=== PATIENT | male | born 1980 | race African-American/Black ===

== ENCOUNTER 2016-09-09 13:43 | Emergency (ER) | payer MEDICAID ==
[2016-09-09 13:49] VITALS: BP 148/99
--- NOTE | 2016-09-09 14:24 | ER Document Report ---
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 He states the itching has been for 4 days. States he has not had a rash it just itches. TRAVEL OUTSIDE OF THE [place] IN LAST 30 DAYS: No - HPI Patient complains to provider of: Other - Itching to the pubic area and penis with no rash Onset: Other - 4 days Onset/Duration: Intermittent Quality of pain: No pain, Other - Itching no pain. Patient states the itching comes and goes Severity: None Pain Level: Denies Skin Character: Other - Itching to the pubic area and penis no rash small bump to the penis no pain Quality of rash: Itchy Identify cause: No Exacerbated by: Denies Relieved by: Denies Similar symptoms previously: No Recently seen / treated by doctor: No - Related Data Allergies/Adverse Reactions: No Known Allergies Allergy (Verified 09/09/16 13:47) Past Medical History - General Information source: Patient - Social History Smoking Status: Current Every Day Smoker Cigarette use (# per day): Yes - pack Per day Chew tobacco use (# tins/day): No Frequency of alcohol use: None Drug Abuse: None Lives with: Family Family History: Arthritis, COPD, CVA, Hypertension, Malignancy, Thyroid Disfunction. denies: CAD, DM, Hyperlipidemia Patient has suicidal ideation: No Patient has homicidal ideation: No - Past Medical History Cardiac Medical History: Reports: None Pulmonary Medical History: Reports: None EENT Medical History: Reports: None Neurological Medical History: Reports: None Endocrine Medical History: Reports: None Renal/ Medical History: Reports: None Malignancy Medical History: Reports None GI Medical History: Reports: None Musculoskeltal Medical History: Reports Hx Arthritis, Reports Hx Musculoskeletal Trauma - Chronic back pain after a back injury Skin Medical History: Reports None Psychiatric Medical History: Reports: Hx Anxiety Traumatic Medical History: Reports: None Infectious Medical History: Reports: None Surgical Hx: Negative - Immunizations Immunizations up to date: Yes Hx Diphtheria, Pertussis, Tetanus Vaccination: Yes - 2012 Review of Systems - Review of Systems Constitutional: Recent illness EENT: Nose discharge, Sinus discharge, Throat pain Cardiovascular: No symptoms reported Respiratory: Cough Gastrointestinal: No symptoms reported Genitourinary: No symptoms reported Male Genitourinary: No symptoms reported Musculoskeletal: No symptoms reported Skin: No symptoms reported Hematologic/Lymphatic: No symptoms reported Neurological/Psychological: No symptoms reported -: Yes All other systems reviewed and negative Physical Exam - Vital signs Vitals: Temp Pulse Resp BP Pulse Ox 98.4 F 98 17 148/99 H 97 09/09/16 13:47 09/09/16 13:47 09/09/16 13:47 09/09/16 13:47 09/09/16 13:47 Interpretation: Normal - General General appearance: Appears well, Alert - HEENT Head: Normocephalic, Atraumatic Eyes: Normal Pupils: PERRL Ears: Normal External canal: Normal Tympanic membrane: Normal Sinus: Normal Nasal: Purulent discharge, Swelling Mouth/Lips: Normal Mucous membranes: Normal Pharynx: Erythema, Post nasal drainage. No: Exudate, Tonsillar hypertrophy, Potential airway comprom. Neck: Normal - Respiratory Respiratory status: No respiratory distress Chest status: Nontender Breath sounds: Nonproductive cough. No: Rales, Rhonchi, Stridor, Wheezing Chest palpation: Normal - Cardiovascular Rhythm: Regular Heart sounds: Normal auscultation Murmur: No - Abdominal Inspection: Normal Distension: No distension Bowel sounds: Normal Tenderness: Nontender Organomegaly: No organomegaly - Back Back: Normal, Nontender - Extremities General upper extremity: Normal inspection, Nontender, Normal color, Normal ROM , Normal temperature General lower extremity: Normal inspection, Nontender, Normal color, Normal ROM , Normal temperature, Normal weight bearing. No: Cesar's sign - Neurological Neuro grossly intact: Yes Cognition: Normal Orientation: AAOx4 Yanni Coma Scale Eye Opening: Spontaneous [place] Coma Scale Verbal: Oriented Yanni Coma Scale Motor: Obeys Commands Yanni Coma Scale Total: 15 Speech: Normal Motor strength normal: LUE, RUE, LLE, RLE Sensory: Normal - Psychological Associated symptoms: Normal affect, Normal mood - Skin Skin Temperature: Warm Skin Moisture: Dry Skin Color: Normal Course - Vital Signs Vital signs: Temp Pulse Resp BP Pulse Ox 98.4 F 98 17 148/99 H 97 09/09/16 13:47 09/09/16 13:47 09/09/16 13:47 09/09/16 13:47 09/09/16 13:47 Discharge - Discharge Clinical Impression: Itching to the pubic area and penis Disposition: HOME, SELF-CARE Instructions: Family Physicians / Practices Additional Instructions: He was seen today for itching to the pubic area and penis. He states there has been no rash and no pain. Please wash area carefully rinsed well pat dry and apply cornstarch or baby cornstarch to the area. It also buy some [id number] lidocaine for the itching. Return to the ED for any pain redness or swelling. Follow up with your primary doctor for any changes in the bump near penis. FOLLOW-UP CARE: If you have been referred to a physician for follow-up care, call the physician s office for an appointment as you were instructed or within the next two days. If you experience worsening or a significant change in your symptoms, notify the physician immediately or return to the Emergency Department at any time for re-evaluation. Forms: Elevated Blood Pressure, Smoking Cessation Education Referrals: ROBERTA SCHWARZ MD [Primary Care Provider] - Follow up as needed
== END 2016-09-09 14:42 | disposition home or self-care (01) ==
LOC: ER 13:43
DX: L29.8 Other pruritus (principal); R21 Rash and other nonspecific skin eruption; F17.210 Nicotine dependence, cigarettes, uncomplicated
CPT/HCPCS: 99282

== ENCOUNTER 2016-10-02 15:37 | Emergency (ER) | payer MEDICAID ==
[2016-10-02 16:05] VITALS: BP 135/90
--- NOTE | 2016-10-02 16:46 | ER Document Report ---
ED Respiratory Problem - General Chief Complaint: Congestion Stated Complaint: CHEST PAIN Time Seen by Provider: 10/02/16 16:37 Notes: 36 yo male c/o pain to left periscapular area with cough and deep breathing x 2 days. no fever, no chest pain, no shortness of breath. + smoker TRAVEL OUTSIDE OF THE [place] IN LAST 30 DAYS: No - HPI Patient complains to provider of: Cough, Hurts to breath Onset: Yesterday Duration: Intermittent episodes Quality of pain: Achy Sputum amount: None Associated symptoms: denies: Chest pain/discomfort, Difficulty breathing, Heart racing, Short of breath, Wheezing Similar symptoms previously: No - Related Data Allergies/Adverse Reactions: No Known Allergies Allergy (Verified 10/02/16 16:01) Past Medical History - General Information source: Patient - Social History Smoking Status: Current Every Day Smoker Frequency of alcohol use: Occasional Drug Abuse: None Lives with: Family Family History: Arthritis, COPD, CVA, Hypertension, Malignancy, Thyroid Disfunction. denies: CAD, DM, Hyperlipidemia Patient has suicidal ideation: No Patient has homicidal ideation: No - Past Medical History Cardiac Medical History: Denies: Hx Coronary Artery Disease, Hx Heart Attack, Hx Hypertension Pulmonary Medical History: Denies: Hx Asthma, Hx Bronchitis, Hx COPD, Hx Pneumonia Neurological Medical History: Denies: Hx Cerebrovascular Accident, Hx Seizures Renal/ Medical History: Denies: Hx Peritoneal Dialysis Musculoskeltal Medical History: Reports Hx Arthritis, Reports Hx Musculoskeletal Trauma - Chronic back pain after a back injury Psychiatric Medical History: Reports: Hx Anxiety - Immunizations Immunizations up to date: Yes Hx Diphtheria, Pertussis, Tetanus Vaccination: Yes - 2012 Review of Systems - Review of Systems Constitutional: No symptoms reported EENT: No symptoms reported Cardiovascular: No symptoms reported Respiratory: Cough, Hurts to breathe Gastrointestinal: No symptoms reported Genitourinary: No symptoms reported Male Genitourinary: No symptoms reported Musculoskeletal: No symptoms reported Skin: No symptoms reported Hematologic/Lymphatic: No symptoms reported Neurological/Psychological: No symptoms reported Physical Exam - Vital signs Vitals: Temp Pulse Resp BP Pulse Ox 98.7 F 100 22 H 135/90 H 98 10/02/16 16:01 10/02/16 16:01 10/02/16 16:01 10/02/16 16:01 10/02/16 16:01 Interpretation: Normal - General General appearance: Appears well, Alert - HEENT Head: Normocephalic, Atraumatic Eyes: Normal Pupils: PERRL - Respiratory Respiratory status: No respiratory distress Chest status: Nontender Breath sounds: Normal Chest palpation: Normal - Cardiovascular Rhythm: Regular Heart sounds: Normal auscultation Murmur: No - Abdominal Inspection: Normal Distension: No distension Bowel sounds: Normal Tenderness: Nontender Organomegaly: No organomegaly - Back Back: Normal, Nontender - Extremities General upper extremity: Normal inspection, Nontender, Normal color, Normal ROM , Normal temperature General lower extremity: Normal inspection, Nontender, Normal color, Normal ROM , Normal temperature, Normal weight bearing. No: Cesar's sign - Neurological Neuro grossly intact: Yes Cognition: Normal Orientation: AAOx4 [place] Coma Scale Eye Opening: Spontaneous Yanni Coma Scale Verbal: Oriented [place] Coma Scale Motor: Obeys Commands Superior Coma Scale Total: 15 Speech: Normal Motor strength normal: LUE, RUE, LLE, RLE Sensory: Normal - Psychological Associated symptoms: Normal affect, Normal mood - Skin Skin Temperature: Warm Skin Moisture: Dry Skin Color: Normal Course - Re-evaluation Re-evalutation: 10/02/16 16:45 pt's pain is pleuritic in nature. low suspicion for cardiac involvement will get CXR to r/o pheumothorax, metastatic dz, infiltrate 10/02/16 17:47 chest xray negative. results reviewed with patient. will treat discomfort, encourage pulmonary toilet. pt stable for discharge - Vital Signs Vital signs: Temp Pulse Resp BP Pulse Ox 98.7 F 100 22 H 135/90 H 98 10/02/16 16:01 10/02/16 16:01 10/02/16 16:01 10/02/16 16:01 10/02/16 16:01 Discharge - Discharge Clinical Impression: Pleuritic chest pain Condition: Stable Disposition: HOME, SELF-CARE Additional Instructions: Your xray is normal today Take pain med as needed encourage deep breathing Follow up with primary care if pain persists, return to ER for any worsening Prescriptions: Hydrocodone/Acetaminophen [Malo 5-325 Tablet] 1 - 2 tab PO ASDIR PRN #15 tab PRN Reason:
--- NOTE | 2016-10-02 17:56 | RADIOLOGY REPORT (SQ) ---
EXAM DESCRIPTION: CHEST PA/LAT COMPLETED DATE/TIME: 10/02/2016 5:19 pm REASON FOR STUDY: cough, left back pain COMPARISON: 07/31/2015 EXAM PARAMETERS: NUMBER OF VIEWS: two views TECHNIQUE: Digital Frontal and Lateral radiographic views of the chest acquired. RADIATION DOSE: NA LIMITATIONS: none FINDINGS: LUNGS AND PLEURA: No opacities, masses or pneumothorax. No pleural effusion. MEDIASTINUM AND HILAR STRUCTURES: No masses or contour abnormalities. HEART AND VASCULAR STRUCTURES: Heart normal size. No evidence for failure. BONES: No acute findings. HARDWARE: None in the chest. OTHER: No other significant finding. IMPRESSION: NO SIGNIFICANT RADIOGRAPHIC FINDING IN THE CHEST. TECHNICAL DOCUMENTATION: JOB ID: [id number] [employer]- All Rights Reserved
--- NOTE | 2016-10-03 08:42 | EKG REPORT ---
SEVERITY:- ABNORMAL ECG - SINUS RHYTHM LEFT VENTRICULAR HYPERTROPHY : Confirmed by: Cassi Adame 03-Oct-2016 08:41:53
== END 2016-10-02 18:20 | disposition home or self-care (01) ==
LOC: ER 15:37
DX: R07.81 Pleurodynia (principal); R07.1 Chest pain on breathing; R05 Cough; F17.200 Nicotine dependence, unspecified, uncomplicated
CPT/HCPCS: 71020; 93005; 93010; 99283

== ENCOUNTER 2016-10-30 02:49 | Emergency (ER) | payer MEDICAID ==
[2016-10-30] MEDS ORDERED: PREDNISONE 20 MG TABLET PO ONE (05:14)
[2016-10-30] MEDS ORDERED: DIPHENHYDRAMINE HCL 25 MG CAPSULE PO ONE (05:14)
[2016-10-30] MEDS ORDERED: FAMOTIDINE 20 MG TABLET PO ONE (05:14)
--- NOTE | 2016-10-30 05:14 | ER Document Report ---
ED Skin Rash/Insect Bite/Abscs - General Chief Complaint: Skin Problem Stated Complaint: BUMPS & ITCHING ALL OVER BODY Time Seen by Provider: 10/30/16 04:32 Mode of Arrival: Ambulatory Information source: Patient TRAVEL OUTSIDE OF THE [place] IN LAST 30 DAYS: No - HPI Patient complains to provider of: Skin rash/lesion Onset: Other - 2 days Onset/Duration: Persistent Quality of pain: No pain Skin Character: Urticarial Skin Temperature: Warm Quality of rash: Itchy Identify cause: No Exacerbated by: Denies Relieved by: Denies Similar symptoms previously: No Recently seen / treated by doctor: No Notes: Patient is a 36-year-old male who presents to the emergency room complaining of itchy skin rash 2 days, patient is unsure what he may have come in contact with to cause the rash, however he works in [employer], no history of similar rash previously, denies any difficulty breathing or swallowing, no fevers, no sick contacts, no new foods, lotions, soaps, detergents, states he took Benadryl at home with minimal relief of symptoms - Related Data Allergies/Adverse Reactions: No Known Allergies Allergy (Verified 10/30/16 03:16) Past Medical History - General Information source: Patient - Social History Smoking Status: Current Every Day Smoker Family History: Arthritis, COPD, CVA, Hypertension, Malignancy, Thyroid Disfunction. denies: CAD, DM, Hyperlipidemia - Past Medical History Cardiac Medical History: Denies: Hx Coronary Artery Disease, Hx Heart Attack, Hx Hypertension Pulmonary Medical History: Denies: Hx Asthma, Hx Bronchitis, Hx COPD, Hx Pneumonia Neurological Medical History: Denies: Hx Cerebrovascular Accident, Hx Seizures Renal/ Medical History: Denies: Hx Peritoneal Dialysis Musculoskeltal Medical History: Reports Hx Arthritis, Reports Hx Musculoskeletal Trauma - Chronic back pain after a back injury Psychiatric Medical History: Reports: Hx Anxiety - Immunizations Immunizations up to date: Yes Hx Diphtheria, Pertussis, Tetanus Vaccination: Yes - 2012 Review of Systems - Review of Systems Constitutional: No symptoms reported EENT: No symptoms reported Cardiovascular: No symptoms reported Respiratory: No symptoms reported Gastrointestinal: No symptoms reported Genitourinary: No symptoms reported Male Genitourinary: No symptoms reported Musculoskeletal: No symptoms reported Skin: See HPI Hematologic/Lymphatic: No symptoms reported Neurological/Psychological: No symptoms reported -: Yes All other systems reviewed and negative Physical Exam - Vital signs Vitals: Temp Pulse Resp BP Pulse Ox 98.4 F 96 18 135/93 H 100 10/30/16 03:18 10/30/16 03:18 10/30/16 03:18 10/30/16 03:18 10/30/16 03:18 - Notes Notes: - General General appearance: Appears well, Alert In distress: None - HEENT Head: Normocephalic, Atraumatic Eyes: Normal Conjunctiva: Normal Extraocular movements intact: Yes Eyelashes: Normal Pupils: PERRL - Respiratory Respiratory status: No respiratory distress - Cardiovascular Rhythm: Regular - Abdominal Inspection: Normal - Back Back: Normal - Extremities General upper extremity: Normal inspection General lower extremity: Normal inspection - Neurological Neuro grossly intact: Yes Orientation: AAOx4 [place] Coma Scale Eye Opening: Spontaneous [place] Coma Scale Verbal: Oriented [place] Coma Scale Motor: Obeys Commands [place] Coma Scale Total: 15 - Psychological Associated symptoms: Normal affect, Normal mood - Skin Skin Temperature: Warm Skin Moisture: Dry Skin Color: Normal - HEENT Pharynx: Normal. No: Potential airway comprom. Neck: Normal - Skin Location of irregularity: Generalized Character of irregularity: Urticarial Irregularity with: Induration Course - Re-evaluation Re-evalutation: 10/30/16 05:21 Patient with diffuse urticarial rash, unknown trigger, given prescriptions for medications to control symptoms, advised to follow-up accordingly, return if any additional concerns, patient acknowledges understanding and agreement with this plan - Vital Signs Vital signs: Temp Pulse Resp BP Pulse Ox 98.4 F 96 18 135/93 H 100 10/30/16 03:18 10/30/16 03:18 10/30/16 03:18 10/30/16 03:18 10/30/16 03:18 Discharge - Discharge Clinical Impression: Urticarial rash Condition: Stable Disposition: HOME, SELF-CARE Instructions: Acute Urticaria ([facility]) Additional Instructions: Follow up with your primary care provider in one to 2 days. Return to the emergency room immediately if symptoms worsen or any additional concerns. Prescriptions: Diphenhydramine HCl [Benadryl 25 Mg Capsule] 25 mg PO Q6 #30 capsule Famotidine [Pepcid 20 mg Tablet] 20 mg PO BID #12 tablet Prednisone 40 mg PO DAILY #8 tablet Forms: Smoking Cessation Education, Elevated Blood Pressure
[2016-10-30 06:09] VITALS: BP 128/87
== END 2016-10-30 05:30 | disposition home or self-care (01) ==
LOC: ER 02:49
DX: L50.9 Urticaria, unspecified (principal); F17.200 Nicotine dependence, unspecified, uncomplicated
CPT/HCPCS: 99283; J3490; J7512

== ENCOUNTER 2016-10-30 06:08 | Emergency (ER) | payer MEDICAID ==
--- NOTE | 2016-10-30 07:29 | ER Document Report ---
HPI - HPI Patient complains to provider of: Irritation to the dorsal penis Onset: Other - Several days ago Onset/Duration: Gradual Pain Level: 3 Context: 36-year-old male was concerned about an irritation sensation to the dorsal aspect of the distal penis for several days. There is no urethral discharge or pain with urination. No rash. No fever. Did change laundry detergents a week ago. Mild itching. Associated Symptoms: None Exacerbated by: Denies Relieved by: Denies Similar symptoms previously: No Recently seen / treated by doctor: No - ROS ROS below otherwise negative: Yes Systems Reviewed and Negative: Yes All other systems reviewed and negative - REPRODUCTIVE Reproductive: DENIES: : - DERM Skin Color: Normal Past Medical History - General Information source: Patient - Social History Smoking Status: Unknown if Ever Smoked Frequency of alcohol use: None Drug Abuse: None Lives with: Family Family History: Arthritis, COPD, CVA, Hypertension, Malignancy, Thyroid Disfunction Renal/ Medical History: Denies: Hx Peritoneal Dialysis Musculoskeltal Medical History: Reports Hx Arthritis, Reports Hx Musculoskeletal Trauma - Chronic back pain after a back injury Psychiatric Medical History: Reports: Hx Anxiety Past Surgical History: Reports: Other - Circumcised - Immunizations Immunizations up to date: Yes Hx Diphtheria, Pertussis, Tetanus Vaccination: Yes - 2013 Vertical Provider Document - CONSTITUTIONAL Agree With Documented VS: Yes Exam Limitations: No Limitations - INFECTION CONTROL TRAVEL OUTSIDE OF THE [place] IN LAST 30 DAYS: No - HEENT HEENT: Normocephalic - NECK Neck: Supple - RESPIRATORY O2 Sat by Pulse Oximetry: 100 - REPRODUCTIVE Male Genitalia: Normal Inspection - questionable mil erythema to dorsal distal penis, no lesions, no discharge - NEURO Level of Consciousness: Awake, Alert, Appropriate - DERM Integumentary: Warm, Dry Notes: see above Course - Vital Signs Vital signs: Temp Pulse Resp BP Pulse Ox 97.3 F 93 16 129/84 H 100 10/30/16 06:28 10/30/16 06:28 10/30/16 06:28 10/30/16 06:28 10/30/16 06:28 Discharge - Discharge Clinical Impression: Erythema dorsal distal penis Condition: Good Instructions: Contact Dermatitis ([facility]), Steroid Medication Additional Instructions: topical over the counter steroid cream to the red skin std culture is pending, call me in 4 hours for the results [phone] to er any concerns Please complete the patient satisfaction survey if you get one, and return it.. If you do not receive a survey, then you can go to the [facility] website, [email or web address] and place your comments about your very good care. Thank you very much. It was a pleasure being your medical provider today.
[2016-10-30 08:07] VITALS: BP 138/89
[2016-10-30 09:16] LABS: CHLAM PCR NOT DETECTED (NOT DETECT)
== END 2016-10-30 08:07 | disposition home or self-care (01) ==
LOC: ER 06:08
DX: L53.8 Other specified erythematous conditions (principal)
CPT/HCPCS: 87491; 87591; 99283

== ENCOUNTER 2017-01-30 10:35 | Emergency (ER) | payer MEDICARE, MEDICAID ==
[2017-01-30 10:39] VITALS: BP 149/93
[2017-01-30] MEDS ORDERED: IBUPROFEN 800 MG TABLET PO ONE (11:21)
[2017-01-30] MEDS ORDERED: LIDOCAINE 5% (700 MG) TRANSDERMAL ADH..PATCH TP ONE (11:21)
--- NOTE | 2017-01-30 11:24 | ER Document Report ---
HPI - HPI Patient complains to provider of: Low back pain Onset: Other - 6 years off and on Onset/Duration: Persistent Quality of pain: Sharp Pain Level: 4 Context: Patient complains of lower back pain off and on for the past 6 years that recently flared up. Patient denies any radiculopathy or paresthesia. Patient denies any urinary retention or incontinence. Patient denies any fever history of IV drug use. Pain is in typical location of where he has had pain in the past. Associated Symptoms: Other - Low back pain Exacerbated by: Movement Relieved by: Denies Similar symptoms previously: Yes Recently seen / treated by doctor: No - ROS ROS below otherwise negative: Yes Systems Reviewed and Negative: Yes All other systems reviewed and negative - CONSTITUTIONAL Constitutional: DENIES: Fever, Chills - NEURO Neurology: DENIES: Headache, Weakness - URINARY Urinary: DENIES: Dysuria - REPRODUCTIVE Reproductive: DENIES: : - MUSCULOSKELETAL Musculoskeletal: REPORTS: Back Pain. DENIES: Extremity pain - DERM Skin Color: Normal Past Medical History - General Information source: Patient - Social History Smoking Status: Current Every Day Smoker Frequency of alcohol use: None Drug Abuse: None Occupation: [email or web address] Family History: Arthritis, COPD, CVA, Hypertension, Malignancy, Thyroid Disfunction Patient has suicidal ideation: No Patient has homicidal ideation: No - Past Medical History Cardiac Medical History: Denies: Hx Coronary Artery Disease, Hx Heart Attack, Hx Hypertension Pulmonary Medical History: Denies: Hx Asthma, Hx Bronchitis, Hx COPD, Hx Pneumonia Neurological Medical History: Denies: Hx Cerebrovascular Accident, Hx Seizures Renal/ Medical History: Denies: Hx Peritoneal Dialysis Musculoskeltal Medical History: Reports Hx Arthritis, Reports Hx Musculoskeletal Trauma - Chronic back pain after a back injury Psychiatric Medical History: Reports: Hx Anxiety, Hx Depression Surgical Hx: Negative Past Surgical History: Reports: Other - Circumcised - Immunizations Immunizations up to date: Yes Hx Diphtheria, Pertussis, Tetanus Vaccination: Yes - 2012 Vertical Provider Document - CONSTITUTIONAL Agree With Documented VS: Yes Exam Limitations: No Limitations General Appearance: WD/WN, No Apparent Distress Notes: PHYSICAL EXAMINATION: GENERAL: Well-appearing, well-nourished and in no acute distress. HEAD: Atraumatic, normocephalic. EYES: sclera clear, anicteric, conjunctiva are normal. ENT: nares patent, Moist mucous membranes. NECK: Normal range of motion, supple no lymphadenopathy LUNGS: respirations unlabored HEART: Regular rate and rhythm without murmurs EXTREMITIES: Normal range of motion, no pitting or edema. No cyanosis. Gait normal, pt ambulates without difficulty BACK: Thoracolumbar midline tenderness, no deformities or step-offs. No CVA tenderness. NEUROLOGICAL: Cranial nerves grossly intact. Normal speech, normal gait. No saddle anesthesia. PSYCH: Normal mood, normal affect. SKIN: Warm, Dry, normal turgor, no rashes or lesions noted. - INFECTION CONTROL TRAVEL OUTSIDE OF THE [place] IN LAST 30 DAYS: No - RESPIRATORY O2 Sat by Pulse Oximetry: 98 Course - Re-evaluation Re-evalutation: 01/30/17 11:22 The patient has been informed that they may have pre-hypertension or hypertension based on a blood pressure reading in the emergency department. I recommend that patient call the primary care provider listed on their discharge instructions or a physician of their choice by this week to arrange follow-up for further evaluation of possible pre-hypertension or hypertension. The patient presents with low back pain without signs of spinal cord compression, cauda equina syndrome, infection, aneurysm, or other serious etiology. The patient is neurologically intact. Given the extremely risk of these diagnoses further testing and evaluation for these possibilities does not appear to be indicated at this time. Patient has been instructed to return if the symptoms worsen or change in any way. 01/30/17 11:23 Controlled substance database reviewed prior to discharge prescription being written - Vital Signs Vital signs: Temp Pulse Resp BP Pulse Ox 98.7 F 114 H 16 149/93 H 98 01/30/17 10:36 01/30/17 10:36 01/30/17 10:36 01/30/17 10:36 01/30/17 10:36 Discharge - Discharge Clinical Impression: Elevated blood pressure reading Low back pain Qualifiers: Chronicity: unspecified Back pain laterality: midline Sciatica presence: without sciatica Qualified Code(s): M54.5 - Low back pain Condition: Stable Disposition: HOME, SELF-CARE Additional Instructions: Return immediately for any new or worsening symptoms Followup with your primary care provider, call tomorrow to make a followup appointment LOW BACK PAIN: Three out of every four people will have an episode of disabling back pain during their lifetime. Most commonly the pain is due to straining of the muscles and ligaments in the low back. Usual treatment includes: (1) Rest on a firm surface. Avoid lying on your stomach. (2) Ice pack the painful area. After a few days, gentle heat may be used intermittently to relax the area, or ice packs can be continued. (3) Medication may be needed -- muscle relaxers and antiinflammatory medicines are commonly used. (4) As the back improves, exercises are prescribed to strengthen the back and abdominal muscles. Your doctor will advise you on the proper care for your back at each stage in your recovery. You may be better in a few days -- or healing may take several weeks. If new symptoms of a "herniated disc" (radiation of pain, numbness, or tingling down the back of the leg or weakness in the leg) occur, you should be re-examined. Further testing may be necessary. ORAL NARCOTIC MEDICATION: You have been given a prescription for pain control. This medication is a narcotic. It's best taken with food, as nausea can result if taken on an empty stomach. Don't operate machinery or drive within six hours of taking this medication. Do not combine this medicine with alcohol, or with any medication which can cause sedation (such as cold tablets or sleeping pills) unless you get permission from the physician. Narcotics tend to cause constipation. If possible, drink plenty of fluids and eat a diet high in fiber and fruits. Please be aware that prescription narcotics also have the potential for abuse. People become addicted to these medications because of the general sense of wellbeing that they induce. This feeling along with a significant reduction in tension, anxiety, and aggression provides a stimulating seductive quality to these drugs. Once your pain is under control, we encourage you to discard your unused narcotics. ICE PACKS: Apply ice packs frequently against the painful area. Many different schedules are recommended, such as "20 minutes on, 20 minutes off" or "one hour ice, two hours rest." If you need to work, you may need to go longer between ice treatments. You should plan to have the area ice packed AT LEAST one fourth of the time. The ice should be applied over the wrap, tape, or splint, or over a layer of cloth -- not directly against the skin. Some ice bags have a built-in cloth and can be put directly on the skin. WARM PACKS: After approximately two days, apply gentle heat (such as a heating pad or hot water bottle) for about 20 to 30 minutes about every two hours -- at least four times daily. Warmth and elevation will help you make a more rapid recovery , and will ease the pain considerably. Do not use HOT heat, and never apply heat for longer than 30 minutes. The continuous heat can invisibly damage skin and muscles -- even when no burn is seen on the surface. Damaged muscles can make you MORE sore. FOLLOW-UP CARE: If you have been referred to a physician for follow-up care, call the physician s office for an appointment as you were instructed or within the next two days. If you experience worsening or a significant change in your symptoms, notify the physician immediately or return to the Emergency Department at any time for re-evaluation. Prescriptions: Hydrocodone/Acetaminophen [Beasley 5-325 Tablet] 1 each PO Q4 PRN #15 tablet PRN Reason: Naproxen [Naprosyn 250 Nmg Tablet] 1 tab PO BID #14 tablet Forms: Elevated Blood Pressure, Return to Work Referrals: [facility] [Provider Group] - Follow up as needed
== END 2017-01-30 11:32 | disposition home or self-care (01) ==
LOC: ER 10:35
DX: R03.0 Elevated blood-pressure reading, without diagnosis of hypertension (principal); M54.5 Low back pain; F17.200 Nicotine dependence, unspecified, uncomplicated
CPT/HCPCS: 99283; A9270

== ENCOUNTER 2017-02-20 17:16 | Emergency (ER) | payer MEDICARE, MEDICAID ==
[2017-02-20] MEDS ORDERED: KETOROLAC TROMETHAMINE 60 MG/2 ML SDV IM ONE (18:17)
--- NOTE | 2017-02-20 18:23 | ER Document Report ---
ED Neck/Back Problem - General Chief Complaint: Back Pain Stated Complaint: BACK PAIN Time Seen by Provider: 02/20/17 18:06 Mode of Arrival: Ambulatory Information source: Patient Notes: 37-year-old male presents to ED for complaint of back pain on and off for 6 years. He states he pain flared up today. He denies any injury denies any loss of sensation to his legs, any saddle anesthesia, any loss control of bowel bladder, or any loss of control of his legs. TRAVEL OUTSIDE OF THE [place] IN LAST 30 DAYS: No - HPI Patient complains to provider of: Pain, Lower back Onset: Other - Chronic Onset: Chronic Timing: Better Quality of pain: Burning, Sharp Severity: Mild Pain Level: 1 Recent injury: No Associated symptoms: Like prior neck/back pain, Lower back pain. denies: Constipation, Fever, Incontinence, Motor loss, Numbness/tingling, Radiation to leg, Sensory loss, Unable to urinate, Upper back pain Exacerbated by: Nothing Relieved by: Nothing Similar symptoms previously: Yes Recently seen / treated by doctor: No - Related Data Allergies/Adverse Reactions: No Known Allergies Allergy (Verified 02/20/17 17:26) Past Medical History - General Information source: Patient - Social History Smoking Status: Current Every Day Smoker Cigarette use (# per day): Yes - Pack per day Chew tobacco use (# tins/day): No Smoking Education Provided: Yes - Less than 2 minutes Frequency of alcohol use: None Drug Abuse: None Lives with: Spouse/Significant other Family History: Arthritis, COPD, CVA, Hypertension, Malignancy, Thyroid Disfunction Patient has suicidal ideation: No Patient has homicidal ideation: No - Past Medical History Cardiac Medical History: Reports: None Pulmonary Medical History: Reports: None EENT Medical History: Reports: None Neurological Medical History: Reports: None Endocrine Medical History: Reports: None Renal/ Medical History: Reports: None Malignancy Medical History: Reports None GI Medical History: Reports: None Musculoskeltal Medical History: Reports Hx Arthritis, Reports Hx Musculoskeletal Trauma - Chronic back pain after a back injury Skin Medical History: Reports None Psychiatric Medical History: Reports: Hx Anxiety, Hx Depression Traumatic Medical History: Reports: None Infectious Medical History: Reports: None Past Surgical History: Reports: Other - Circumcised - Immunizations Immunizations up to date: Yes Hx Diphtheria, Pertussis, Tetanus Vaccination: Yes - 2012 Review of Systems - Review of Systems Constitutional: No symptoms reported EENT: No symptoms reported Cardiovascular: No symptoms reported Respiratory: No symptoms reported Gastrointestinal: No symptoms reported Genitourinary: No symptoms reported Male Genitourinary: No symptoms reported Musculoskeletal: Back pain, Muscle pain, Muscle stiffness Skin: No symptoms reported Hematologic/Lymphatic: No symptoms reported Neurological/Psychological: No symptoms reported -: Yes All other systems reviewed and negative Physical Exam - Vital signs Vitals: Temp Pulse Resp BP Pulse Ox 98.8 F 90 16 141/102 H 97 02/20/17 17:25 02/20/17 17:25 02/20/17 17:25 02/20/17 17:25 02/20/17 17:25 Interpretation: Normal - General General appearance: Appears well, Alert - HEENT Head: Normocephalic, Atraumatic Eyes: Normal Pupils: PERRL - Respiratory Respiratory status: No respiratory distress Chest status: Nontender Breath sounds: Normal Chest palpation: Normal - Cardiovascular Rhythm: Regular Heart sounds: Normal auscultation Murmur: No - Abdominal Inspection: Normal Distension: No distension Bowel sounds: Normal Tenderness: Nontender Organomegaly: No organomegaly - Back Back: Normal, Tender. No: Deformity/step-off, CVA tenderness, Vertebra tenderness, Scars - Low back, Scoliosis, Wounds - Extremities General upper extremity: Normal inspection, Nontender, Normal color, Normal ROM , Normal temperature General lower extremity: Normal inspection, Nontender, Normal color, Normal ROM , Normal temperature, Normal weight bearing. No: Cesar's sign - Neurological Neuro grossly intact: Yes Cognition: Normal Orientation: AAOx4 Yanni Coma Scale Eye Opening: Spontaneous Yanni Coma Scale Verbal: Oriented Yanni Coma Scale Motor: Obeys Commands Yanni Coma Scale Total: 15 Speech: Normal Motor strength normal: LUE, RUE, LLE, RLE Sensory: Normal - Psychological Associated symptoms: Normal affect, Normal mood - Skin Skin Temperature: Warm Skin Moisture: Dry Skin Color: Normal Course - Re-evaluation Re-evalutation: 02/20/17 20:29 No signs or symptoms of cauda equina. Patient was treated with Toradol and discharged home with prescription for Flexeril. Patient was instructed to please get a primary doctor and follow-up for his elevated blood pressure. And for his back pain. - Vital Signs Vital signs: Temp Pulse Resp BP Pulse Ox 97.7 F 85 19 150/103 H 97 02/20/17 18:25 02/20/17 18:25 02/20/17 18:25 02/20/17 18:25 02/20/17 18:25 Discharge - Discharge Clinical Impression: Chronic low back pain Qualifiers: Back pain laterality: bilateral Sciatica presence: without sciatica Qualified Code(s): M54.5 - Low back pain Condition: Stable Disposition: HOME, SELF-CARE Additional Instructions: Chronic Back Pain Chronic back pain (pain persisting longer than three months) is a common problem. A medical evaluation can look for herniated disc, arthritis, osteoporosis, tumors, and infections. But at least half the time, there's no obvious treatable cause. Anxiety and depression tend to worsen back pain. Ibuprofen or other anti-inflammatory medicine can help. A heating pad, used for 15-20 minutes at a time, can ease pain. For this type of back pain, narcotic medicines should be avoided. Muscle relaxers are rarely helpful unless you're having spasms. Activity is important. Find an aerobic exercise program that your back can tolerate. Too much rest makes back pain worse. Specific back exercises are usually prescribed to strengthen the back and abdominal muscles. Often, a physical therapist can help. Avoid heavy lifting, working while bent over, or standing with both knees straight. Most back pain patients do better with a firm mattress. If new symptoms of a "herniated disc" (radiation of pain, numbness, or tingling down the back of the leg or weakness in the leg) occur, you should be re-examined. Chronic Pain Control Stress, inactivity, and depression make pain more severe regardless of the cause of the pain. Stress and poor physical condition can cause pain such as headaches and backache. Relaxation: Rest in a quiet place with your eyes closed for 20 minutes twice daily. Concentrate on a pleasant image, or simply "feel" your breathing. Clear your mind. Stress management: Deal with your "stressors." Either take action, or eliminate the stressor from your life. Don't let things hang over you. Accept those things you can't change. Nutrition: Eat small, balanced meals -- don't skip, don't overeat. Meals should be high-carbohydrate, low-sugar, low-fat. Exercise: Exercise helps painful conditions and eases stress. Get 30 minutes of moderate exercise, five days a week. Do an activity that does not flare your pain. Precautions: Pain which continues to disrupt daily activities, or which changes in nature, requires a medical evaluation. Pain Clinic referral is available. We do not manage chronic pain in the Emergency Department. We will try to appropriately help you through an acute flare of your chronic painful condition , but for on-going chronic pain that does not improve, you will need to see your private doctor or sign painter. We do not provide repeated medication management of chronic painful conditions. If you wish, we can provide the name of local pain management physicians. Acetaminophen Acetaminophen may be taken for pain relief or fever control. It's much safer than aspirin, offering a wider range of "safe" dosages. It is safe during . Some brand names are Tylenol, Panadol, Datril, Anacin 3, Tempra, and Liquiprin. Acetaminophen can be repeated every four hours. The following are maximum recommended dosages: WEIGHT Dose Drops Elixir Chewable( 80mg) (LBS.) drprs=droppers tsp=teaspoon 6 40 mg .4 ml (1/2) 6-11 80 mg .8 ml (full) 1/2 tsp 1 tab 12-16 120 mg 1 1/2 drprs 3/4 tsp 1 1/2 tabs 17-23 160 mg 2 drprs 1 tsp 2 tabs 24-30 240 mg 3 drprs 1 1/2 tsp 3 tabs 30-35 320 mg 2 tsp 4 tabs 36-41 360 mg 2 1/4 tsp 4 1 /2 tabs 42-47 400 mg 2 1/2 tsp 5 tabs 48-53 480 mg 3 tsp 6 tabs 54-59 520 mg 3 1/4 tsp 6 1 /2 tabs 60-64 560 mg 3 1/2 tsp 7 tabs 65-70 600 mg 3 3/4 tsp 7 1 /2 tabs 71-76 640 mg 4 tsp 8 tabs 77-82 720 mg 4 1/2 tsp 9 tabs 83-88 800 mg 5 tsp 10 tabs >89 pounds or adults 650 mg to 900 mg Acetaminophen can be repeated every four hours. Maximum daily dose not to exceed 4000 mg. These maximum recommended dosages are slightly higher than the dosages written on the product container, but these dosages are very safe and well below the toxic dosage for acetaminophen. Stretching Exercises for the Back The physician has recommended that you begin stretching exercises for your back. These are often used even while the back is painful. However, you should notify the physician if the activities seem to increase your pain. PELVIC TILT: Lie flat on your back with knees bent. Tighten your stomach and buttock muscles so it flattens your lower back against the floor. Hold 10 seconds. Repeat 10 times, twice daily. KNEE RAISE: Lying on the back with knees bent, raise one knee to your chest, then the other. Hold both knees against the chest 10 seconds, then lower one knee at a time. Repeat 10 times, twice daily. PARTIAL TRUNK RAISE: Lie face down, arms at your sides. Keeping your waist on the floor, use your arms raise your chest up. Support yourself on your elbows for 30 seconds. Repeat twice daily, increasing the time to two minutes as you recover. Muscle Relaxers Muscle relaxing medications are usually prescribed for acute muscle spasm or injury to the neck and back. They are often combined with antiinflammatory pain medication for increased relief. You may stop the muscle relaxer when the pain and stiffness have improved. Start the medication again if spasms recur. Muscle relaxers may cause drowsiness, especially with the first dose. Do not operate machinery or drive while under the effects of the medication. Most muscle relaxers last up to 24 hours. Do not combine the medication with alcohol. ICE PACKS: Apply ice packs frequently against the painful area. Many different schedules are recommended, such as "20 minutes on, 20 minutes off" or "one hour ice, two hours rest." If you need to work, you may need to go longer between ice treatments. You should plan to have the area ice packed AT LEAST one fourth of the time. The ice should be applied over the wrap, tape, or splint, or over a layer of cloth -- not directly against the skin. Some ice bags have a built-in cloth and can be put directly on the skin. WARM PACKS: After approximately two days, apply gentle heat (such as a heating pad or hot water bottle) for about 20 to 30 minutes about every two hours -- at least four times daily. Warmth and elevation will help you make a more rapid recovery , and will ease the pain considerably. Do not use HOT heat, and never apply heat for longer than 30 minutes. The continuous heat can invisibly damage skin and muscles -- even when no burn is seen on the surface. Damaged muscles can make you MORE sore. FOLLOW-UP CARE: If you have been referred to a physician for follow-up care, call the physician s office for an appointment as you were instructed or within the next two days. If you experience worsening or a significant change in your symptoms, notify the physician immediately or return to the Emergency Department at any time for re-evaluation. Prescriptions: Cyclobenzaprine HCl [Flexeril 5 mg Tablet] 5 mg PO TID #7 tablet Forms: Elevated Blood Pressure, Smoking Cessation Education, Return to Work Referrals: [facility] [Provider Group] - Follow up as needed
[2017-02-20 18:26] VITALS: BP 150/103
== END 2017-02-20 18:52 | disposition home or self-care (01) ==
LOC: ER 17:16
DX: G89.29 Other chronic pain (principal); M54.5 Low back pain; R03.0 Elevated blood-pressure reading, without diagnosis of hypertension; F17.210 Nicotine dependence, cigarettes, uncomplicated; Z71.6 Tobacco abuse counseling
CPT/HCPCS: 99283; 96372; J1885

== ENCOUNTER 2017-03-29 13:20 | Emergency (ER) | payer OTHER, MEDICARE, MEDICAID ==
[2017-03-29] MEDS ORDERED: TETRACAINE HCL 0.5% OPH SOLN 2 ML OS ONE (14:33)
--- NOTE | 2017-03-29 15:24 | ER Document Report ---
ED Eye Complaint - General Chief Complaint: Eye Problem Stated Complaint: EYE INJURY Time Seen by Provider: 03/29/17 14:26 Mode of Arrival: Ambulatory Information source: Patient Notes: Patient is a 37-year-old black male comes emergency room with 2 complaints the first 1 is he was at work and a piece of glass flew up and hit him in the corner of the eye. He wants that checked out and he originally complained of having a little penis pain. Patient denies any visual complications currently states is just making sure there is nothing in his eye. And has no complaints of discomfort or pain. On his penis patient declines to have that checked up today he said I do not want to have that problem addressed now. 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 Patient was wearing safety glasses and it again is just here to make sure that there is nothing wrong with the eye. TRAVEL OUTSIDE OF THE [place] IN LAST 30 DAYS: No - HPI Patient complains to provider of: Possible foreign body in right eye. Onset: Just prior to arrival Eye location: Right Injury: Yes Occurred at: Work Quality of pain: No pain Severity: None Pain Level: 0 Safety glasses worn: Yes Contact lenses worn: No Eye irrigated by: Yes Associated symptoms: Eyelid swelling - Right lower medial canthus lower portion of the leg - Related Data Allergies/Adverse Reactions: No Known Allergies Allergy (Verified 03/29/17 13:21) Home Medications: Current Home Medications No Home Medications 03/29/17 [History] Past Medical History - General Information source: Patient - Social History Smoking Status: Current Every Day Smoker Cigarette use (# per day): Yes - 1 pack a day Chew tobacco use (# tins/day): No Frequency of alcohol use: None Drug Abuse: None Family History: Arthritis, COPD, CVA, Hypertension, Malignancy, Thyroid Disfunction Patient has suicidal ideation: No Patient has homicidal ideation: No - Past Medical History Cardiac Medical History: Denies: Hx Coronary Artery Disease, Hx Heart Attack, Hx Hypertension Pulmonary Medical History: Denies: Hx Asthma, Hx Bronchitis, Hx COPD, Hx Pneumonia Neurological Medical History: Denies: Hx Cerebrovascular Accident, Hx Seizures Renal/ Medical History: Denies: Hx Peritoneal Dialysis Musculoskeltal Medical History: Reports Hx Arthritis - right shoulder, Reports Hx Musculoskeletal Trauma - Chronic back pain after a back injury Psychiatric Medical History: Reports: Hx Anxiety, Hx Depression Past Surgical History: Reports: Other - Circumcised - Immunizations Immunizations up to date: Yes Hx Diphtheria, Pertussis, Tetanus Vaccination: Yes - 2012 Review of Systems - Review of Systems Constitutional: No symptoms reported EENT: No symptoms reported Cardiovascular: No symptoms reported Respiratory: No symptoms reported Gastrointestinal: No symptoms reported Genitourinary: No symptoms reported Male Genitourinary: No symptoms reported Musculoskeletal: No symptoms reported Skin: No symptoms reported Hematologic/Lymphatic: No symptoms reported Neurological/Psychological: No symptoms reported -: Yes All other systems reviewed and negative Physical Exam - Vital signs Vitals: Temp Pulse Resp BP Pulse Ox 98.4 F 90 14 156/100 H 98 03/29/17 13:26 03/29/17 13:26 03/29/17 13:26 03/29/17 13:26 03/29/17 13:26 Interpretation: Hypertensive - General General appearance: Appears well In distress: None - HEENT Eyes: Other - Mild conjunctival injection right side Conjunctiva: Injected Cornea: Normal, Other - Examination patient's right eye shows that there is normal-appearing pupil and cornea. This was under forcing staining. The eye lids were flipped no foreign bodies were found. There was no fluorescein uptake. There appears to be just a slight amount of swelling to the lower lid at the medial canthus. This most likely resulted from a piece of something hitting his eye. Patient had safety glasses on so he is just caught him on the corner of the medial eyelid. Rest of exam is normal.. No: Corneal abrasion, Corneal ulcer, Dendrite, Embedded foreign body, Flourescein stain uptake, Opacified, Superficial foreign body Extraocular movements intact: Yes Eyelashes: Normal Pupils: PERRL Visual acuity- Right eye: 20/30 Visual acuity- Left eye: 20/20 Visual acuity- Both eyes: 20/15 - Respiratory Respiratory status: No respiratory distress Chest status: Nontender Breath sounds: Normal. No: Decreased air movement, Nonproductive cough, Productive cough, Rales, Rhonchi, Stridor, Wheezing, Other - Cardiovascular Rhythm: Regular Heart sounds: Normal auscultation Murmur: No - Neurological Cognition: Normal Orientation: AAOx4 [place] Coma Scale Eye Opening: Spontaneous [place] Coma Scale Verbal: Oriented [place] Coma Scale Motor: Obeys Commands [place]anni Coma Scale Total: 15 Speech: Normal Course - Vital Signs Vital signs: Temp Pulse Resp BP Pulse Ox 98.4 F 90 14 156/100 H 98 03/29/17 13:26 03/29/17 13:26 03/29/17 13:26 03/29/17 13:26 03/29/17 13:26 - Transfer of Care Notes: 03/29/17 15:31 Again patient had safety glasses on and is only here to make sure that everything is okay. He has no visual complaints. No watery eyes. No foreign bodies were found in the eye. Will let patient go home and return to work tomorrow. Procedures - Eye Procedure Right Acular drops administered: Right Fluorescein applied: Right Slit lamp used: Yes Discharge - Discharge Clinical Impression: Contusion of right eyelid Eye pain Qualifiers: Laterality: right Qualified Code(s): H57.11 - Ocular pain, right eye Condition: Good Disposition: HOME, SELF-CARE Instructions: Contusion ([facility]) Additional Instructions: It appears that you have a small contusion of that right lower lid near the end of the lower right lid. This is called the medial canthus. You do not have a foreign body or piece of glass in her eye. The little bit of swelling that is evident on the lower lid you may use a ice pack 2-3 times a day for a few minutes each time. Should you have any worsening symptoms visual problems return to ER for recheck. I also given her the name of the heat welder plastics is proration clerk today if you have any discomfort or problems he may contact his office and see if he can accommodate you. Forms: Elevated Blood Pressure, Smoking Cessation Education, Return to Work Referrals: KIRILL DAWKINS DO [ACTIVE STAFF] - Follow up as needed
[2017-03-29 15:55] VITALS: BP 135/90
== END 2017-03-29 15:52 | disposition home or self-care (01) ==
LOC: ER 13:20
DX: S00.11XA Contusion of right eyelid and periocular area, initial encounter (principal); H57.11 Ocular pain, right eye; F17.210 Nicotine dependence, cigarettes, uncomplicated; W22.8XXA Striking against or struck by other objects, initial encounter
CPT/HCPCS: 99283

== ENCOUNTER 2017-04-11 12:02 | Emergency (ER) | payer MEDICARE, MEDICAID ==
[2017-04-11 12:07] VITALS: BP 144/99
--- NOTE | 2017-04-11 12:29 | ER Document Report ---
ED General - General Chief Complaint: Lip Swelling Stated Complaint: SWOLLEN LIP Time Seen by Provider: 04/11/17 12:28 Mode of Arrival: Ambulatory Information source: Patient Notes: Patient is a 37-year-old -[place] male who presents with right-sided upper lip swelling that started last yesterday evening. He denies any injury to the area. He endorses associated cold symptoms. He denies any fever, chills , difficulty swallowing, difficulty breathing, cough, shortness of breath or having the sensation that his throat is closing. He has not recently taken any medications. He has not specifically taking any lisinopril. Of note, he is speaking in full sentences without difficulty. Not hypoxic or tachypneic. Otherwise doing well. TRAVEL OUTSIDE OF THE [place] IN LAST 30 DAYS: No - Related Data Allergies/Adverse Reactions: No Known Allergies Allergy (Verified 04/11/17 12:05) Past Medical History - General Information source: Patient - Social History Smoking Status: Current Every Day Smoker Family History: Arthritis, COPD, CVA, Hypertension, Malignancy, Thyroid Disfunction - Past Medical History Cardiac Medical History: Denies: Hx Coronary Artery Disease, Hx Heart Attack, Hx Hypertension Pulmonary Medical History: Denies: Hx Asthma, Hx Bronchitis, Hx COPD, Hx Pneumonia Neurological Medical History: Denies: Hx Cerebrovascular Accident, Hx Seizures Renal/ Medical History: Denies: Hx Peritoneal Dialysis Musculoskeltal Medical History: Reports Hx Arthritis - right shoulder, Reports Hx Musculoskeletal Trauma - Chronic back pain after a back injury Psychiatric Medical History: Reports: Hx Anxiety, Hx Depression Past Surgical History: Reports: Other - Circumcised - Immunizations Immunizations up to date: Yes Hx Diphtheria, Pertussis, Tetanus Vaccination: Yes - 2013 Review of Systems - Review of Systems Constitutional: See HPI EENT: See HPI Cardiovascular: No symptoms reported Respiratory: See HPI Gastrointestinal: No symptoms reported Genitourinary: No symptoms reported Male Genitourinary: No symptoms reported Musculoskeletal: No symptoms reported Skin: No symptoms reported Hematologic/Lymphatic: No symptoms reported Neurological/Psychological: No symptoms reported Physical Exam - Vital signs Vitals: Temp Pulse Resp BP Pulse Ox 99.0 F 100 16 144/99 H 99 04/11/17 12:03 04/11/17 12:03 04/11/17 12:03 04/11/17 12:03 04/11/17 12:03 Interpretation: Normal, Hypertensive - Notes Notes: PHYSICAL EXAM: CONSTITUTIONAL: Alert and oriented, well-appearing and in no acute distress. Speaking in full sentences, not hypoxic or tachypneic. HENT: Normocephalic, atraumatic. Ear canals without erythema or foreign body, TMs pearly medina with good bony landmarks. Nares clear without erythema, septal hematoma or deviation, airway patent. Oropharynx clear without erythema, tonsilar exudate or malocclusion. Trachea midline. Uvula midline. Moist mucous membranes. No angioedema noted. Significant dental caries noted to teeth #6- 7. No evidence of perioral abscess. EYES: Pupils equal round and reactive to light, EOM intact. Sclera anicteric, conjunctiva are normal. No entrapment. NECK: supple without lymphadenopathy. No midline tenderness or paraspinous muscle spasms. No step-offs or deformities. ROM intact. HEART: Regular rate and rhythm without murmurs. LUNGS: CTAB and equal. No wheezes, rales or rhonchi. EXTREMITIES: Normal range of motion, no pitting edema. No cyanosis. Cap Refill < 3 seconds. NEURO: Cranial nerves grossly intact. Normal sensory/motor exams. PSYCH: Normal mood, normal affect. SKIN: Warm and dry. Normal turgor. No rashes or lesions noted. Course - Re-evaluation Re-evalutation: 04/11/17 12:29 Patient seen and examined. No respiratory distress, he is not hypoxic or tachypneic. Vital signs are stable. No angioedema noted. He is speaking in full sentences without difficulty. Do not appreciate any significant lip swelling but patient is tender about the teeth #6-7 with associated severe dental caries to the same. No evidence of perioral abscess. Will treat for dental infection as I feel this is contributing to his lip pain and "swelling". Low suspicion at this time for angioedema, respiratory distress or other emergent condition at this time. At this time, will discharge with return precautions and follow-up recommendations. Verbal discharge instructions given at the bedside and opportunity for questions given. Medication warnings reviewed. Patient is in agreement with this plan and has verbalized understanding of return precautions and the need for primary care follow-up in the next 24-72 hours. - Vital Signs Vital signs: Temp Pulse Resp BP Pulse Ox 99.0 F 100 16 144/99 H 99 04/11/17 12:03 04/11/17 12:03 04/11/17 12:03 04/11/17 12:03 04/11/17 12:03 Discharge - Discharge Clinical Impression: Dental caries Condition: Stable Disposition: HOME, SELF-CARE Additional Instructions: TOOTHACHE: Your pain is due to dental decay. The tooth must be repaired in order for you to feel better. You will, therefore, be referred to a dentist. We do not have dentists on the staff at [facility]. Severe swelling or drainage around a tooth usually means a dental abscess. This also requires evaluation and treatment by the dentist, but antibiotics may be prescribed while awaiting dental treatment. You should be rechecked immediately if you develop major swelling of the face, increasing pain, a lump in the jaw or gums, headache, difficulty swallowing, or fever. FOLLOW-UP CARE: You have been referred for follow-up care to the dentists listed below. Call the dentists office for an appointment as you were instructed or within the next two days. If you experience worsening or a significant change in your symptoms, notify the physician immediately or return to the Emergency Department at any time for re-evaluation. [facility] [address] [place], [place] Monday mornings, by appointment [facility] [address] [place] [address] [facility] [address] [facility] [address] [facility] [address] [email or web address] [address] [place] [address] Monday- 8:00am to 5:00 pm Will see patients from other [facility]. Charges based on income and family size and accepts Medicare, Medicaid, and Insurances Will pull molars [facility] [place] [address] Hours of Operation 8:00 am - 4:30 pm weekdays The following dental offices accept Medicaid: [facility] Dr. Sw[address] Dr. Christina Dr. Bonilla Dr. Yun Ed Yates, Simón, and Yris oral surgery Dr. Tejada ([place]) Dr. Sheets ([place]) [facility] Drs. Solis and Kenneth ([place]) Dr. Bueno ([place]) [facility] Dr. Bennett ([place]) Drs. Gerardo and ([place]) Medicaid Care Line Prescriptions: Amox Tr/Potassium Clavulanate [Augmentin 875-125 Tablet] 1 tab PO BID 10 Days tablet Diphenhydramine HCl [Benadryl] 25 mg PO Q6H PRN #15 capsule PRN Reason: Itching Ibuprofen [Motrin 600 Mg Tablet] 600 mg PO TID #15 tablet Forms: Elevated Blood Pressure
== END 2017-04-11 13:23 | disposition home or self-care (01) ==
LOC: ER 12:02
DX: K02.9 Dental caries, unspecified (principal); F17.200 Nicotine dependence, unspecified, uncomplicated
CPT/HCPCS: 99283

== ENCOUNTER 2017-06-20 14:54 | Emergency (ER) | payer MEDICARE, MEDICAID ==
[2017-06-20 15:02] VITALS: BP 150/93
[2017-06-20] MEDS ORDERED: IBUPROFEN 800 MG TABLET PO ONE (15:25)
--- NOTE | 2017-06-20 15:26 | ER Document Report ---
HPI - HPI Patient complains to provider of: Low back pain, abscess Onset: Other - 2 days Onset/Duration: Persistent Quality of pain: Achy Pain Level: 4 Context: Patient presents complaining of low back pain for the past 2 days. Patient denies any injury. Patient does have a previous history of chronic back pain and that this is in the similar location where he has had pain before. Patient denies any urinary retention or incontinence. Patient denies any fever. Patient additionally reports an abscess to the right inner thigh area. Patient denies any history of MRSA. Associated Symptoms: Other - Low back pain. denies: Fever Exacerbated by: Movement Relieved by: Denies Similar symptoms previously: Yes Recently seen / treated by doctor: No - ROS ROS below otherwise negative: Yes Systems Reviewed and Negative: Yes All other systems reviewed and negative - CONSTITUTIONAL Constitutional: DENIES: Fever, Chills - EENT EENT: DENIES: Sore Throat, Ear Pain, Eye problems - NEURO Neurology: DENIES: Headache, Weakness, Vision blurred, Dizzinesss / Vertigo - CARDIOVASCULAR Cardiovascular: DENIES: Chest pain - RESPIRATORY Respiratory: DENIES: Trouble Breathing, Coughing - GASTROINTESTINAL Gastrointestinal: DENIES: Abdominal Pain, Black / Bloody Stools - URINARY Urinary: DENIES: Dysuria, Urgency, Frequency - REPRODUCTIVE Reproductive: DENIES: : - MUSCULOSKELETAL Musculoskeletal: REPORTS: Back Pain. DENIES: Extremity pain - DERM Notes: Abscess Past Medical History - General Information source: Patient - Social History Smoking Status: Current Every Day Smoker Chew tobacco use (# tins/day): No Smoking Education Provided: Yes Frequency of alcohol use: None Drug Abuse: None Occupation: none Lives with: Family Family History: Arthritis, COPD, CVA, Hypertension, Malignancy, Thyroid Disfunction Patient has suicidal ideation: No Patient has homicidal ideation: No - Past Medical History Cardiac Medical History: Denies: Hx Coronary Artery Disease, Hx Heart Attack, Hx Hypertension Pulmonary Medical History: Denies: Hx Asthma, Hx Bronchitis, Hx COPD, Hx Pneumonia Neurological Medical History: Denies: Hx Cerebrovascular Accident, Hx Seizures Renal/ Medical History: Denies: Hx Peritoneal Dialysis Musculoskeltal Medical History: Reports Hx Arthritis - right shoulder, Reports Hx Musculoskeletal Trauma - Chronic back pain after a back injury Psychiatric Medical History: Reports: Hx Anxiety, Hx Depression Surgical Hx: Negative Past Surgical History: Reports: Other - Circumcised - Immunizations Immunizations up to date: Yes Hx Diphtheria, Pertussis, Tetanus Vaccination: Yes - 2012 Vertical Provider Document - CONSTITUTIONAL Agree With Documented VS: Yes Exam Limitations: No Limitations General Appearance: WD/WN, No Apparent Distress - INFECTION CONTROL TRAVEL OUTSIDE OF THE [place] IN LAST 30 DAYS: No - HEENT HEENT: Atraumatic, Normocephalic - NECK Neck: Normal Inspection - RESPIRATORY Respiratory: Breath Sounds Normal, No Respiratory Distress O2 Sat by Pulse Oximetry: 99 - CARDIOVASCULAR Cardiovascular: Regular Rate, Regular Rhythm - BACK Back: Abnormal Inspection - Left lower lumbar paraspinal tenderness, no midline tenderness, step-off or deformity. negative: CVA Tenderness-Right, CVA Tenderness-Left - MUSCULOSKELETAL/EXTREMETIES Musculoskeletal/Extremeties: LOGAN MARIA - NEURO Level of Consciousness: Awake, Alert, Appropriate Motor/Sensory: No Motor Deficit Notes: No saddle anesthesia, normal gait, no footdrop - DERM Integumentary: Warm, Dry, Abscess - Small 1 cm abscess to right medial thigh, no cellulitis Course - Re-evaluation Re-evalutation: 06/20/17 16:00 The patient presents with low back pain without signs of spinal cord compression , cauda equina syndrome, infection, aneurysm, or other serious etiology. The patient is neurologically intact. Given the extremely risk of these diagnoses further testing and evaluation for these possibilities does not appear to be indicated at this time. Patient has been instructed to return if the symptoms worsen or change in any way. - Vital Signs Vital signs: Temp Pulse Resp BP Pulse Ox 98.8 F 91 16 150/93 H 99 06/20/17 14:59 06/20/17 14:59 06/20/17 14:59 06/20/17 14:59 06/20/17 14:59 Procedures - Incision and Drainage Right Thigh Type: Simple Anesthetic type: 1% Lidocaine Blade size: 11 I&D procedure: Betadine prep applied Incision Method: Incision made by scalpel Amount/type of drainage: small amount of purulent drainage Discharge - Discharge Clinical Impression: Abscess, Encounter for incision and drainage procedure Low back pain Qualifiers: Chronicity: unspecified Back pain laterality: left Sciatica presence: without sciatica Qualified Code(s): M54.5 - Low back pain Condition: Stable Disposition: HOME, SELF-CARE Instructions: Abscess ([facility]), Low Back Pain ([facility]), Trimethoprim-Sulfa ([facility]), Warm Packs ([facility]) Additional Instructions: Return immediately for any new or worsening symptoms Followup with your primary care provider, call tomorrow to make a followup appointment Prescriptions: Methocarbamol [Robaxin 500 Mg Tablet] 500 mg PO QID PRN #20 tablet PRN Reason: Naproxen [Naprosyn 250 Nmg Tablet] 1 tab PO BID #14 tablet Sulfamethoxazole/Trimethoprim [Bactrim Ds Tablet] 1 each PO BID #20 tablet Forms: Smoking Cessation Education Referrals: [facility] [Provider Group] - Follow up as needed
== END 2017-06-20 16:16 | disposition home or self-care (01) ==
LOC: ER 14:54
DX: L02.415 Cutaneous abscess of right lower limb (principal); M54.5 Low back pain; F17.200 Nicotine dependence, unspecified, uncomplicated
CPT/HCPCS: 99283; 10060; A9270

== ENCOUNTER 2017-06-23 16:28 | Emergency (ER) | payer MEDICARE, MEDICAID ==
--- NOTE | 2017-06-23 16:50 | ER Document Report ---
ED Suture/Wound Recheck - General Chief Complaint: Abscess Recheck Stated Complaint: ABSCESS Time Seen by Provider: 06/23/17 16:36 Mode of Arrival: Ambulatory Information source: Patient Notes: 37-year-old male comes ED for continued pain to his abscess to his right upper thigh. He had an I&D on the . There is no redness there is no swelling there is no fluctuation at the site at this time. There is no need for any further treatment to this except for the patient to continue his antibiotics. TRAVEL OUTSIDE OF THE [place] IN LAST 30 DAYS: No - HPI Previous ED treatment: I&D of abscess Antibiotics given previously: Prescription Quality of pain: Sharp Pain Level: 3 Symptoms since procedure: Pain Exacerbated by: Sitting, Movement, Walking Relieved by: Denies - Related Data Allergies/Adverse Reactions: No Known Allergies Allergy (Verified 06/23/17 16:30) Past Medical History - General Information source: Patient - Social History Smoking Status: Never Smoker Chew tobacco use (# tins/day): No Smoking Education Provided: No Frequency of alcohol use: None Drug Abuse: None Lives with: Family Family History: Arthritis, COPD, CVA, Hypertension, Malignancy, Thyroid Disfunction - Past Medical History Cardiac Medical History: Reports: None Pulmonary Medical History: Reports: None EENT Medical History: Reports: None Neurological Medical History: Reports: None Endocrine Medical History: Reports: None Renal/ Medical History: Reports: None Malignancy Medical History: Reports None Musculoskeltal Medical History: Reports Hx Arthritis - right shoulder, Reports Hx Musculoskeletal Trauma - Chronic back pain after a back injury Skin Medical History: Reports Hx Cellulitis Psychiatric Medical History: Reports: Hx Anxiety, Hx Depression Traumatic Medical History: Reports: None Infectious Medical History: Reports: None Past Surgical History: Reports: Other - Circumcised - Immunizations Immunizations up to date: Yes Hx Diphtheria, Pertussis, Tetanus Vaccination: Yes - 2013 Review of Systems - Review of Systems Constitutional: No symptoms reported EENT: No symptoms reported Cardiovascular: No symptoms reported Respiratory: No symptoms reported Gastrointestinal: No symptoms reported Genitourinary: No symptoms reported Male Genitourinary: No symptoms reported Musculoskeletal: No symptoms reported Skin: Other - Pain to abscess right upper leg Hematologic/Lymphatic: No symptoms reported Neurological/Psychological: No symptoms reported -: Yes All other systems reviewed and negative Physical Exam - Vital signs Vitals: Temp Pulse Resp BP Pulse Ox 98.8 F 110 H 18 138/79 H 97 06/23/17 16:32 06/23/17 16:32 06/23/17 16:32 06/23/17 16:32 06/23/17 16:32 Interpretation: Normal - General General appearance: Appears well, Alert - HEENT Head: Normocephalic, Atraumatic Eyes: Normal Pupils: PERRL - Respiratory Respiratory status: No respiratory distress Chest status: Nontender Breath sounds: Normal Chest palpation: Normal - Cardiovascular Rhythm: Regular Heart sounds: Normal auscultation Murmur: No - Abdominal Inspection: Normal Distension: No distension Bowel sounds: Normal Tenderness: Nontender Organomegaly: No organomegaly - Back Back: Normal, Nontender - Extremities General upper extremity: Normal inspection, Nontender, Normal color, Normal ROM , Normal temperature General lower extremity: Normal inspection, Nontender, Normal color, Normal ROM , Normal temperature, Normal weight bearing. No: Cesar's sign - Neurological Neuro grossly intact: Yes Cognition: Normal Orientation: AAOx4 Yanni Coma Scale Eye Opening: Spontaneous Yanni Coma Scale Verbal: Oriented [place] Coma Scale Motor: Obeys Commands Yanni Coma Scale Total: 15 Speech: Normal Motor strength normal: LUE, RUE, LLE, RLE Sensory: Normal - Psychological Associated symptoms: Normal affect, Normal mood - Skin Skin Temperature: Warm Skin Moisture: Dry Skin Color: Normal Skin irregularity: Abscess - Has already been I&D is healing appropriately Location of irregularity: Extremities - Right upper thigh Irregularity with: Swelling, Tenderness Course - Re-evaluation Re-evalutation: 06/23/17 17:43 Patient had Keflex ordered to his regime as well as Epson salt soaks as he states that his area still is hurting. There is no fluctuation no redness no drainage no increase in size. He states it is actually feeling much better than it had been. Patient was instructed to follow-up with his primary doctor for follow-up for this abscess. He is also instructed to return to the ED for any increase in pain or swelling or drainage. He is also instructed to follow- up with the emergency room for any fevers. Patient verbalized understanding. - Vital Signs Vital signs: Temp Pulse Resp BP Pulse Ox 98.8 F 101 H 16 142/90 H 97 06/23/17 16:57 06/23/17 16:57 06/23/17 16:57 06/23/17 16:57 06/23/17 16:57 Discharge - Discharge Clinical Impression: Abscess re-check Condition: Stable Disposition: HOME, SELF-CARE Additional Instructions: ABSCESS: You have an abscess (boil). This a pus-forming infection, usually due to staph. Some boils may be left to drain on their own, but most require lancing. From the time the tender lump first appears, it may be three or four days before the abscess is ready to jonathon. Local heat and rest help at this stage of treatment. An antibiotic may prevent spread of the infection. Once the abscess is opened, packing may be placed into it. This is done so pus is not sealed inside by premature closure of the cavity. The packing will be removed at your follow-up visit or you may be advised to remove it yourself at home. Sometimes this packing must be replaced a few times during healing. The wound will heal with surprisingly little scar. Depending on the size and location of an abscess, healing can take one to four weeks. You may shower and wash the area around the incision site two or three times a day. Antibiotics may be prescribed, but are usually not necessary after an abscess has been drained. If you develop fever, chills, worsening pain, or increasing swelling in the area, call the doctor or return immediately. CEPHALEXIN: The antibiotic you've been prescribed is a member of the cephalosporin class. This type of antibiotic covers a wide variety of infections, including those of the skin, lungs, and urinary tract. It's useful for staph infections. This antibiotic is slightly similar to the penicillin family. In rare cases , a person who is allergic to penicillin will also be allergic to this medication. If you have had a severe allergic reaction to penicillin, and have not taken this antibiotic since that time, notify your doctor. Antibiotics which cover many germs ("broad spectrum" antibiotics) are more likely to cause diarrhea or "yeast" infections. Women prone to vaginal yeast problems may suffer an attack after taking this antibiotic. In infants, oral thrush (white spots "stuck" on the cheek) or yeast diaper rash may result. See your doctor if these problems occur. Call at once if you develop itching, hives , shortness of breath, or lightheadedness. TRIMETHOPRIM-SULFA: You have been given a prescription for trimethoprim-sulfa (TMS, Septra, Bactrim). This is a combination antibiotic of the sulfa class, often used for urinary tract infections, middle ear infections, bronchitis, shigella intestinal infection, and Pneumocystis pneumonia. TMS is usually well-tolerated. Occasional side effects include nausea and decreased appetite. Septra is not recommended for infants less than two months of age. Do not take this medication if you have experienced severe side effects or allergy to sulfa medicine. You should stop this medicine at once and contact your physician if you develop any rash, joint pain, shortness of breath, bruising, or jaundice ( yellow color in the skin), or if you develop any other new or unusual symptoms. Epsom Salt Soaks Soak the wound area in a container of warm epsom salt water. If you can't get the wound area into a bucket or garcia, use a folded towel soaked in the epsom salt solution and apply to the area. Use clean hot tap water (about the temperature of a very warm bath), mixing in about one (1) teaspoon for every pint of water. Two gallon --> 16 teaspoons Epsom Salts One gallon --> 8 teaspoons Epsom Salts Two quarts --> 4 teaspoons Epsom Salts One quart --> 2 teaspoons Epsom Salts Soak the wound for about 20 minutes while gently moving it around in the water. Repeat this four (4) times a day. FOLLOW-UP CARE: Most simple abscesses will not require a follow up visit. If you had packing placed in the abscess, remove it as instructed by the physician. If you have been referred to a physician for follow-up care, call the physicians office for an appointment as you were instructed or within the next two days. If you experience worsening or a significant change in your symptoms, return to the Emergency Department at any time for re-evaluation. Prescriptions: Cephalexin Monohydrate [Keflex 500 mg Capsule] 500 mg PO Q6H 5 Days capsule Forms: Elevated Blood Pressure, Smoking Cessation Education, Return to Work Referrals: [facility] [Provider Group] - Follow up as needed
[2017-06-23 16:59] VITALS: BP 142/90
== END 2017-06-23 17:07 | disposition home or self-care (01) ==
LOC: ER 16:28
DX: L02.415 Cutaneous abscess of right lower limb (principal)
CPT/HCPCS: 99282

== ENCOUNTER 2017-07-03 14:53 | Emergency (ER) | payer MEDICARE, MEDICAID ==
[2017-07-03 15:14] VITALS: BP 141/99
== END 2017-07-03 15:42 | disposition left against medical advice (07) ==
LOC: ER 14:53
DX: Z53.21 Procedure and treatment not carried out due to patient leaving prior to being seen by health care provider (principal); R10.9 Unspecified abdominal pain

== ENCOUNTER 2017-08-23 07:10 | Emergency (ER) | payer MEDICARE, MEDICAID ==
[2017-08-23 08:43] LABS: ABSOLUTE BASOPHILS # (AUTO) 0.1 10^3/uL (0.0-0.2); ABSOLUTE EOSINOPHILS # (AUTO) 0.2 10^3/uL (0.0-0.6); ABSOLUTE LYMPHOCYTES (AUTO) 3.4 10^3/uL (0.5-4.7); ABSOLUTE MONOCYTES (AUTO) 0.7 10^3/uL (0.1-1.4); ABSOLUTE NEUT (AUTO) 3.5 10^3/uL (1.7-8.2); BASOPHILS % (AUTO) 0.8 % (0-2); EOSINOPHILS % (AUTO) 3.1 % (0-6); HEMATOCRIT 41.8 % (37.9-51.0); HEMOGLOBIN 13.5 g/dL (13.5-17.0); LYMPHOCYTES % (AUTO) 42.5 % (13-45); MEAN CORPUSCULAR HEMOGLOBIN 28.5 pg (27.0-33.4); MEAN CORPUSCULAR HGB CONC 32.4 g/dL (32.0-36.0); MEAN CORPUSCULAR VOLUME 88 fl (80-97); MONOCYTES % (AUTO) 9.2 % (3-13); PLATELET COUNT 257 10^3/uL (150-450); RED BLOOD COUNT 4.75 10^6/uL (4.35-5.55); RED CELL DISTRIBUTION WIDTH 12.7 % (11.5-14.0); SEGMENTED NEUTROPHILS % (AUTO) 44.4 % (42-78); TOTAL CELLS COUNTED % (AUTO) 100 %
[2017-08-23 09:03] LABS: ALANINE AMINOTRANSFERASE 62 U/L (21-72); ALBUMIN 3.6 g/dL (3.5-5.0); ALKALINE PHOSPHATASE 79 U/L (38-126); ANION GAP 8 (5-19); ASPARTATE AMINO TRANSFERASE 32 U/L (17-59); BILIRUBIN,DIRECT 0.2 mg/dL (0.0-0.4); BILIRUBIN,TOTAL 0.2 mg/dL (0.2-1.3); BLOOD UREA NITROGEN 11 mg/dL (7-20); CALCIUM 9.1 mg/dL (8.4-10.2); CARBON DIOXIDE 28 mmol/L (22-30); CHLORIDE 108 mmol/L (98-107); GLUCOSE 99 mg/dL (75-110); POTASSIUM 4.1 mmol/L (3.6-5.0); SODIUM 143.7 mmol/L (137-145); TOTAL PROTEIN 5.8 g/dL (6.3-8.2)
--- NOTE | 2017-08-23 09:20 | ER Document Report ---
ED Extremity Problem, Lower - General Chief Complaint: Leg Swelling Stated Complaint: FOOT SWELLING Time Seen by Provider: 08/23/17 07:49 Mode of Arrival: Ambulatory Information source: Patient Notes: Patient is a 37-year-old -[place] male who presents to the ER today for bilateral ankle swelling 3 days. Patient states that he just started a new job where he stands all the time and he is not used to that. Patient has no history of kidney disease or congestive heart failure, no family history of these things that he can think of. Patient denies any pain, injury, redness, fever, chills. He denies any swelling anywhere else. TRAVEL OUTSIDE OF THE [place] IN LAST 30 DAYS: No - Related Data Allergies/Adverse Reactions: No Known Allergies Allergy (Verified 08/23/17 07:21) Home Medications: no at home medications Past Medical History - General Information source: Patient - Social History Smoking Status: Current Every Day Smoker Frequency of alcohol use: Social Drug Abuse: None Family History: Arthritis, COPD, CVA, Hypertension, Malignancy, Thyroid Disfunction Patient has suicidal ideation: No Patient has homicidal ideation: No - Past Medical History Cardiac Medical History: Denies: Hx Coronary Artery Disease, Hx Heart Attack, Hx Hypertension Pulmonary Medical History: Denies: Hx Asthma, Hx Bronchitis, Hx COPD, Hx Pneumonia Neurological Medical History: Denies: Hx Cerebrovascular Accident, Hx Seizures Renal/ Medical History: Denies: Hx Peritoneal Dialysis Musculoskeltal Medical History: Reports Hx Arthritis - right shoulder, Reports Hx Musculoskeletal Trauma - Chronic back pain after a back injury Skin Medical History: Reports Hx Cellulitis Psychiatric Medical History: Reports: Hx Anxiety, Hx Depression Past Surgical History: Reports: Other - Circumcised - Immunizations Immunizations up to date: Yes Hx Diphtheria, Pertussis, Tetanus Vaccination: Yes - 2012 Review of Systems - Review of Systems Constitutional: No symptoms reported EENT: No symptoms reported Cardiovascular: No symptoms reported Respiratory: No symptoms reported. denies: Short of breath Gastrointestinal: No symptoms reported Genitourinary: No symptoms reported Male Genitourinary: No symptoms reported Musculoskeletal: No symptoms reported Skin: See HPI Hematologic/Lymphatic: No symptoms reported Neurological/Psychological: No symptoms reported Physical Exam - Vital signs Vitals: Temp Pulse Resp BP Pulse Ox 97.9 F 92 16 140/89 H 98 08/23/17 07:28 08/23/17 07:28 08/23/17 07:28 08/23/17 07:28 08/23/17 07:28 - Notes Notes: PHYSICAL EXAMINATION: GENERAL: Well-appearing and in no acute distress. HEAD: Atraumatic, normocephalic. EYES: Pupils equal round and reactive to light, extraocular movements intact, sclera anicteric, conjunctiva are normal. NECK: Normal range of motion, supple without lymphadenopathy LUNGS: CTAB and equal. No wheezes rales or rhonchi. HEART: Regular rate and rhythm without murmurs EXTREMITIES: Normal range of motion, trace pitting edema to the right ankle. No cyanosis. NEUROLOGICAL: Cranial nerves grossly intact. Normal sensory/motor exams. PSYCH: Normal mood, normal affect. SKIN: Warm, Dry, normal turgor, no rashes or lesions noted Course - Re-evaluation Re-evalutation: 08/23/17 09:19 Patient eloped while blood work was pending. He did not tell anybody that he was leaving. 08/23/17 09:31 pt returned from cafeteria. Lab work is back and normal kidney function as well as negative BNP. Will advise elevating patient's legs after working. I did educate him on elevating them higher than the level of the heart. I spent a long time educating him on this. - Vital Signs Vital signs: Temp Pulse Resp BP Pulse Ox 97.9 F 92 16 140/89 H 98 08/23/17 07:28 08/23/17 07:28 08/23/17 07:28 08/23/17 07:28 08/23/17 07:28 - Laboratory Result Diagrams: 08/23/17 08:24 08/23/17 08:24 Laboratory results interpreted by me: 08/23/17 08:24 Chloride 108 H Total Protein 5.8 L Discharge - Discharge Clinical Impression: Swelling of both ankles Condition: Stable Disposition: HOME, SELF-CARE Additional Instructions: Every day after work, come home and elevate your legs above the level of your heart for at least half an hour. This should help tremendously with the swelling. Return immediately for any new or worsening symptoms. Follow up with primary care provider, call tomorrow to make followup appointment. Forms: Return to Work
[2017-08-23 09:42] VITALS: BP 146/95
== END 2017-08-23 09:19 | disposition home or self-care (01) ==
LOC: ER 07:10
DX: R60.0 Localized edema (principal); F17.200 Nicotine dependence, unspecified, uncomplicated; Z82.61 Family history of arthritis
CPT/HCPCS: 36415; 80053; 83880; 85025; 99283

== ENCOUNTER 2017-08-28 17:14 | Emergency (ER) | payer MEDICARE, MEDICAID ==
[2017-08-28 17:21] VITALS: BP 121/77
--- NOTE | 2017-08-28 19:19 | ER Document Report ---
ED Neck/Back Problem - General Chief Complaint: Back Pain Stated Complaint: BACK PAIN Mode of Arrival: Ambulatory Information source: Patient TRAVEL OUTSIDE OF THE [place] IN LAST 30 DAYS: No - HPI Notes: Patient eloped before this provider saw him. - Related Data Allergies/Adverse Reactions: No Known Allergies Allergy (Verified 08/23/17 07:21) Past Medical History - Social History Smoking Status: Current Every Day Smoker Chew tobacco use (# tins/day): No Frequency of alcohol use: None Drug Abuse: None Family History: Arthritis, COPD, CVA, Hypertension, Malignancy, Thyroid Disfunction Patient has suicidal ideation: No Patient has homicidal ideation: No - Past Medical History Cardiac Medical History: Denies: Hx Coronary Artery Disease, Hx Heart Attack, Hx Hypertension Pulmonary Medical History: Denies: Hx Asthma, Hx Bronchitis, Hx COPD, Hx Pneumonia Neurological Medical History: Denies: Hx Cerebrovascular Accident, Hx Seizures Renal/ Medical History: Denies: Hx Peritoneal Dialysis Musculoskeltal Medical History: Reports Hx Arthritis - right shoulder, Reports Hx Musculoskeletal Trauma - Chronic back pain after a back injury Skin Medical History: Reports Hx Cellulitis Psychiatric Medical History: Reports: Hx Anxiety, Hx Depression Past Surgical History: Reports: Other - Circumcised - Immunizations Immunizations up to date: Yes Hx Diphtheria, Pertussis, Tetanus Vaccination: Yes - 2012 Physical Exam - Vital signs Vitals: Temp Pulse Resp BP Pulse Ox 98.7 F 82 13 121/77 98 08/28/17 17:20 08/28/17 17:20 08/28/17 17:20 08/28/17 17:20 08/28/17 17:20 Course - Vital Signs Vital signs: Temp Pulse Resp BP Pulse Ox 98.7 F 82 13 121/77 98 08/28/17 17:20 08/28/17 17:20 08/28/17 17:20 08/28/17 17:20 08/28/17 17:20
== END 2017-08-28 19:26 | disposition left against medical advice (07) ==
LOC: ER 17:14
DX: M54.9 Dorsalgia, unspecified (principal); F17.200 Nicotine dependence, unspecified, uncomplicated; Z87.828 Personal history of other (healed) physical injury and trauma
CPT/HCPCS: 99281

== ENCOUNTER 2017-08-28 20:16 | Emergency (ER) | payer MEDICARE, MEDICAID ==
[2017-08-28 20:31] VITALS: BP 138/94
--- NOTE | 2017-08-29 00:20 | ER Document Report ---
ED General - General Chief Complaint: Back Pain Stated Complaint: BACK PAIN Time Seen by Provider: 08/29/17 00:19 Mode of Arrival: Ambulatory Information source: Patient Notes: 37-year-old gentleman with no significant past medical history presented today for evaluation of acute back pain for the past 1 day. Pain is localized to the lumbar area, achy, worse with movement and palpation, change position, severity of symptoms a 6 out of 10. patient denies any fevers, chills, nausea vomiting , focal lower extremity weakness or paresthesias, no prior history of IV drug use. TRAVEL OUTSIDE OF THE [place] IN LAST 30 DAYS: No - Related Data Allergies/Adverse Reactions: No Known Allergies Allergy (Verified 08/23/17 07:21) Past Medical History - Social History Smoking Status: Current Every Day Smoker Family History: Arthritis, COPD, CVA, Hypertension, Malignancy, Thyroid Disfunction - Past Medical History Cardiac Medical History: Denies: Hx Coronary Artery Disease, Hx Heart Attack, Hx Hypertension Pulmonary Medical History: Denies: Hx Asthma, Hx Bronchitis, Hx COPD, Hx Pneumonia Neurological Medical History: Denies: Hx Cerebrovascular Accident, Hx Seizures Renal/ Medical History: Denies: Hx Peritoneal Dialysis Musculoskeltal Medical History: Reports Hx Arthritis - right shoulder, Reports Hx Musculoskeletal Trauma - Chronic back pain after a back injury Skin Medical History: Reports Hx Cellulitis Psychiatric Medical History: Reports: Hx Anxiety, Hx Depression Past Surgical History: Reports: Other - Circumcised - Immunizations Immunizations up to date: Yes Hx Diphtheria, Pertussis, Tetanus Vaccination: Yes - 2012 Review of Systems - Review of Systems Notes: REVIEW OF SYSTEMS: CONSTITUTIONAL: -fevers, -chills EENT: -eye pain, -difficulty swallowing, -nasal congestion CARDIOVASCULAR: -chest pain, -syncope. RESPIRATORY: -cough, -SOB GASTROINTESTINAL: -abdominal pain, -nausea, -vomiting, -diarrhea GENITOURINARY: -dysuria, -hematuria MUSCULOSKELETAL: +back pain, -neck pain SKIN: -rash or skin lesions. HEMATOLOGIC: -easy bruising or bleeding. LYMPHATIC: -swollen, enlarged glands. NEUROLOGICAL: -altered mental status or loss of consciousness, -headache, - neurologic symptoms PSYCHIATRIC: -anxiety, -depression. ALL OTHER SYSTEMS REVIEWED AND NEGATIVE. Physical Exam - Vital signs Vitals: Temp Pulse Resp BP Pulse Ox 98.2 F 93 18 138/94 H 97 08/28/17 20:29 08/28/17 20:29 08/28/17 20:08/28/17 20:08/28/17 20:29 - Notes Notes: Reviewed vital signs and nursing note as charted by RN. CONSTITUTIONAL: Alert and oriented and responds appropriately to questions HEAD: Normocephalic; atraumatic EYES: PERRL; Conjunctivae clear, sclerae non-icteric ENT: normal nose; NECK: Supple CARD: Regular rate and rhythm; no murmurs, no clicks, no rubs, no gallops; symmetric distal pulses RESP: Normal chest excursion without splinting or tachypnea; breath sounds clear and equal bilaterally ABD/GI: Normal bowel sounds; non-distended; soft, BACK: The back appears normal, patient has paraspinal lumbar tenderness without any midline pain, no step-off or deformity, bilateral lower extremity examination with 5 out of 5 motor strength at the ankles as well as the knees, patellar reflexes +2 bilaterally, DP and PT palpable, sensation is present in all of the dermatomes of the bilateral lower extremities EXT: Normal ROM in all joints; non-tender to palpation; no cyanosis, no effusions, no edema SKIN: Normal color for age and race; warm; dry; good turgor; capillary refill < 2 seconds; no acute lesions noted NEURO: .Cranial nerves 3-12 intact. Motor strength 5/5 bilaterally. Sensation intact to touch bilaterally. No pronator drift. Finger to nose intact bilaterally PSYCH: The patient's mood and manner are appropriate. Grooming and personal hygiene are appropriate. Course - Re-evaluation Re-evalutation: 08/29/17 00:28 Patient for evaluation of acute back pain, no red flags and normal neurologic examination, therefore no need for neuroimaging at present time Patient did not have any recent trauma or injury, no suspicion for lumbar fracture No suspicion for epidural abscess or cord syndrome Discussed the plan with patient, he agreed with symptomatic control with prescriptions for home We will start patient on Robaxin as well as naproxen, follow-up with primary care physician Patient was given strict precautions to come back if his symptoms are not improving - Vital Signs Vital signs: Temp Pulse Resp BP Pulse Ox 98.2 F 93 18 138/94 H 97 08/28/17 20:29 08/28/17 20:29 08/28/17 20:29 08/28/17 20:29 08/28/17 20:29 Discharge - Discharge Clinical Impression: Acute lumbar back pain Condition: Stable Instructions: Low Back Pain ([facility]) Prescriptions: Methocarbamol [Robaxin 750 mg Tablet] 750 mg PO ASDIR PRN #40 tablet PRN Reason: Naproxen 500 mg PO BID 10 Days #20 tablet Referrals: PRINCE BUTLER FNP-C [Primary Care Provider] - Follow up as needed
== END 2017-08-29 00:35 | disposition home or self-care (01) ==
LOC: ER 20:16
DX: M54.5 Low back pain (principal); F17.200 Nicotine dependence, unspecified, uncomplicated; Z87.828 Personal history of other (healed) physical injury and trauma
CPT/HCPCS: 99283

== ENCOUNTER 2017-09-04 16:32 | Emergency (ER) | payer MEDICARE, MEDICAID ==
[2017-09-04 16:42] VITALS: BP 143/99
[2017-09-04] MEDS ORDERED: KETOROLAC TROMETHAMINE INJ/PF 30 MG/1 ML SDV IM ONE (16:52)
--- NOTE | 2017-09-04 17:03 | ER Document Report ---
ED Neck/Back Problem - General Chief Complaint: Back Pain Stated Complaint: BACK PAIN Time Seen by Provider: 09/04/17 16:43 Mode of Arrival: Ambulatory Information source: Patient TRAVEL OUTSIDE OF THE [place] IN LAST 30 DAYS: No - HPI Patient complains to provider of: Pain, Lower back Onset: Yesterday Notes: Patient is here with complaints of left low back pain. States the pain started yesterday. He denies any fall or trauma. He states that the pain was limiting him from standing straight up because of pain. He states that he seems to be somewhat better at this time. In reviewing his records, he has been seen multiple times for back pain in the past, he had x-rays of the lumbar spine a few years ago showing some degenerative changes with no acute findings. Patient has been seen here twice in the last few weeks for back pain as well. Patient is on no blood thinning medications. He denies fever. He denies abdominal pain. He denies nausea, vomiting, diarrhea. No rash. No bowel or bladder dysfunction. No numbness, tingling, weakness. Pain is worse with and he stands straight up and moves, better with rest. No chest pain or shortness of breath. No dysuria or hematuria. No other complaints at this time. - Related Data Allergies/Adverse Reactions: No Known Allergies Allergy (Verified 09/04/17 16:32) Past Medical History - Social History Smoking Status: Current Every Day Smoker Family History: Arthritis, COPD, CVA, Hypertension, Malignancy, Thyroid Disfunction - Past Medical History Cardiac Medical History: Denies: Hx Coronary Artery Disease, Hx Heart Attack, Hx Hypertension Pulmonary Medical History: Denies: Hx Asthma, Hx Bronchitis, Hx COPD, Hx Pneumonia Neurological Medical History: Denies: Hx Cerebrovascular Accident, Hx Seizures Renal/ Medical History: Denies: Hx Peritoneal Dialysis Musculoskeltal Medical History: Reports Hx Arthritis - right shoulder, Reports Hx Musculoskeletal Trauma - Chronic back pain after a back injury Skin Medical History: Reports Hx Cellulitis Psychiatric Medical History: Reports: Hx Anxiety, Hx Depression Past Surgical History: Reports: Other - Circumcised - Immunizations Immunizations up to date: Yes Hx Diphtheria, Pertussis, Tetanus Vaccination: Yes - 2012 Review of Systems - Review of Systems -: Yes All other systems reviewed and negative Physical Exam - Vital signs Vitals: Temp Pulse Resp BP Pulse Ox 98.6 F 96 14 143/99 H 98 05/28/18 16:39 09/04/17 16:39 09/04/17 16:39 09/04/17 16:39 09/04/17 16:39 - Notes Notes: GENERAL: alert, cooperative, nontoxic, no distress. HEAD: normocephalic, atraumatic EYES: conjunctiva pink without discharge, no external redness or swelling. EARS: no external swelling, no external redness NOSE: atraumatic, no external swelling MOUTH/THROAT: mucous membranes moist and pink, posterior pharynx without erythema, swelling, exudate. No trismus or drooling. NECK: soft, supple, full range of motion, no meningismus. CHEST: no distress, lungs clear and equal throughout. No wheezing, rales, rhonchi. CARDIAC: regular rate and rhythm, no murmur, normal capillary refill, normal pulses. No peripheral edema noted. ABDOMEN: soft, nontender, no pusatile mass. BACK: No CVA tenderness. Tenderness to the left lumbar paraspinal muscles. No midline tenderness step-offs or crepitus. EXTREMITIES: full range of motion of all extremities. No redness, no swelling. NEURO: alert and oriented A&O x 3, no focal deficits, full range of motion of all extremities. 5 out of 5 flexion and extension of the lower extremities bilaterally. Patellar and Achilles deep tendon reflexes are +2 bilaterally. Normal sensation with no saddle anesthesia. Patient can dorsiflex the great toes bilaterally. PYSCH: appropriate mood, affect. Patient is cooperative. SKIN: pink, warm, dry, no rash. Course - Re-evaluation Re-evalutation: 09/04/17 17:07 Patient is nontoxic appearing with stable vitals. Is here with complaints of left low back pain. Pain is worse when he stands straight up when he moves. No trauma. The pain started yesterday. He has no sign or risk of cauda equina , epidural abscess/bleed, discitis, osteomyelitis, pyelonephritis. He has a nonfocal neurological exam. In reviewing his records, the patient is been seen here multiple times for back pain in the past. On his last visit he was instructed to get established with a primary care doctor. He has not done that at this time. I did stress the importance of him getting established with a primary care doctor to help further evaluate what appears to be some chronic back pain. Patient was given a shot of Toradol here in the emergency department. He will be discharged home with a prescription for Voltaren and Zanaflex. He is given referrals to family practice. He is instructed to follow -up with primary care at the next available appointment, follow-up sooner for worsening pain, high fever, difficult to controlling his bowels or his bladder, abdominal pain, or for any further concerns. The patient is noted to have elevated blood pressure during today's emergency department visit. The patient was informed of this finding. The patient was instructed that this may be related to pre-hypertension and requires further evaluation with a primary care provider. The patient has no hypertensive symptoms at this time. The patient's emergency department workup and current diagnosis were explained to the patient and or family. Follow-up instructions were provided. Medications if prescribed were discussed. Instructions for when to return to the emergency department including specific worrisome symptoms were discussed with the patient and/or family. - Vital Signs Vital signs: Temp Pulse Resp BP Pulse Ox 98.6 F 96 14 143/99 H 98 09/04/17 16:39 09/04/17 16:39 09/04/17 16:39 09/04/17 16:39 09/04/17 16:39 Discharge - Discharge Clinical Impression: Low back pain Qualifiers: Chronicity: acute Back pain laterality: left Sciatica presence: without sciatica Qualified Code(s): M54.5 - Low back pain Condition: Stable Disposition: HOME, SELF-CARE Instructions: Low Back Pain ([facility]), Muscle Strain ([facility]), Family Physicians / Practices Additional Instructions: TAKE MEDS PRESCRIBED. APPLY HEAT OR ICE NEEDED FOR PAIN. Avoid heavy lifting but stay active. Try to stretch as much as possible. Get established with a primary care doctor at the next available appointment. Follow-up sooner for worsening pain, fever, difficulty controlling her bowels or bladder, abdominal pain, or for any further concerns. Your blood pressure was elevated during today's visit. Have this rechecked with your doctor. Prescriptions: Diclofenac Sodium [Voltaren 50 Mg Tablet.] 50 mg PO BID #20 tablet. Tizanidine HCl [Zanaflex 4 Mg Tablet] 4 mg PO BID PRN #10 tablet PRN Reason: Forms: Return to Work, Elevated Blood Pressure, Smoking Cessation Education Referrals: [facility] [Provider Group] - Follow up as needed
== END 2017-09-04 17:10 | disposition home or self-care (01) ==
LOC: ER 16:32
DX: M54.5 Low back pain (principal); R03.0 Elevated blood-pressure reading, without diagnosis of hypertension; F17.200 Nicotine dependence, unspecified, uncomplicated
CPT/HCPCS: 99283; J1885

== ENCOUNTER 2018-02-26 09:46 | Emergency (ER) | payer MEDICARE, MEDICAID ==
[2018-02-26 09:57] VITALS: BP 152/110
--- NOTE | 2018-02-26 10:21 | ER Document Report ---
ED General - General Chief Complaint: Nausea/Vomiting Stated Complaint: BACK PAIN Time Seen by Provider: 02/26/18 10:12 Notes: Patient is a 38-year-old male that presents to the emergency department for chief complaint of nausea and vomiting and low back pain. Patient reports that he had 2 episodes of vomiting yesterday, one in the morning and one in the evening, it has since resolved, he denies having any associated abdominal pain. He just wanted to be evaluated for this. He thinks it may be related to something that he ate but he is not entirely sure. He denies having any nausea at this time. Denies having any associated diarrhea. He is also reports he has a complaint of low back pain, he started a new job where he is on his feet more often, describes as an aching sensation in the paraspinal area, bilaterally. Currently rates the pain as a 2 out of 10. He has not taken any medication for the pain. Denies having any dysuria, hematuria. Past Medical History: Denies chronic medical conditions Past Surgical History: Denies surgical history Social History: Admits to smoking cigarettes, denies alcohol or illicit drug use Family History: Reviewed and noncontributory for presenting illness Allergies: Reviewed, see documented allergy list. REVIEW OF SYSTEMS: Other than noted above, the 12 point review of systems was reviewed with the patient and were negative, all pertinent findings are included in the HPI. PHYSICAL EXAMINATION: Vital signs reviewed, nursing noted reviewed. GENERAL: Well-appearing, well-nourished and in no acute distress. HEAD: Atraumatic, normocephalic. EYES: Eyes appear normal, extraocular movements intact, sclera anicteric, conjunctiva are normal. ENT: nares patent, oropharynx clear without exudates. Moist mucous membranes. NECK: Normal range of motion, supple without lymphadenopathy LUNGS: Breath sounds clear to auscultation bilaterally and equal. No wheezes rales or rhonchi. HEART: Regular rate and rhythm without murmurs ABDOMEN: Soft, nontender, normoactive bowel sounds. No rebound, guarding, or rigidity. No masses appreciated. Back: Mild paraspinal tenderness bilaterally in the lumbar spine, no thoracic spine tenderness. EXTREMITIES: Nontender, good range of motion, no pitting or edema. NEUROLOGICAL: No focal neurological deficits. Moves all extremities spontaneously Motor and sensory grossly intact on exam. PSYCH: Normal mood, normal affect. SKIN: Warm, Dry, normal turgor, no rashes or lesions noted on exposed skin TRAVEL OUTSIDE OF THE [place] IN LAST 30 DAYS: No - Related Data Allergies/Adverse Reactions: No Known Allergies Allergy (Verified 09/04/17 16:32) Past Medical History - Social History Smoking Status: Current Every Day Smoker Chew tobacco use (# tins/day): No Frequency of alcohol use: None Drug Abuse: None Family History: Arthritis, COPD, CVA, Hypertension, Malignancy, Thyroid Disfunction Patient has suicidal ideation: No Patient has homicidal ideation: No - Past Medical History Cardiac Medical History: Denies: Hx Coronary Artery Disease, Hx Heart Attack, Hx Hypertension Pulmonary Medical History: Denies: Hx Asthma, Hx Bronchitis, Hx COPD, Hx Pneumonia Neurological Medical History: Denies: Hx Cerebrovascular Accident, Hx Seizures Renal/ Medical History: Denies: Hx Peritoneal Dialysis Musculoskeletal Medical History: Reports Hx Arthritis - right shoulder, Reports Hx Musculoskeletal Trauma - Chronic back pain after a back injury Skin Medical History: Reports Hx Cellulitis Psychiatric Medical History: Reports: Hx Anxiety, Hx Depression Past Surgical History: Reports: Other - Circumcised - Immunizations Immunizations up to date: Yes Hx Diphtheria, Pertussis, Tetanus Vaccination: Yes - 2012 Physical Exam - Vital signs Vitals: Temp Pulse Resp BP Pulse Ox 98.4 F 98 16 152/110 H 97 02/26/18 09:55 02/26/18 09:55 02/26/18 09:55 02/26/18 09:55 02/26/18 09:55 Course - Re-evaluation Re-evalutation: Patient seen and examined, appears well, no concerning findings on exam, patient 's nausea and other symptoms seem to be resolving. I will prescribe him Zofran to take as needed for nausea and vomiting and if it returns or is not improving that he should return to the emergency department, which she was agreeable to. - Vital Signs Vital signs: Temp Pulse Resp BP Pulse Ox 98.4 F 98 16 152/110 H 97 02/26/18 09:55 02/26/18 09:55 02/26/18 09:55 02/26/18 09:55 02/26/18 09:55 Discharge - Discharge Clinical Impression: Nausea and vomiting Qualifiers: Vomiting type: unspecified Vomiting Intractability: non-intractable Qualified Code(s): R11.2 - Nausea with vomiting, unspecified Condition: Stable Disposition: HOME, SELF-CARE Instructions: Vomiting ([facility]) Additional Instructions: Please return to the emergency department if you have any worsening, or concern of your symptoms. Please return to the emergency department if you develop chest pain, difficulty breathing, severe abdominal pain, or ongoing vomiting. Please follow-up with your primary care physician in 2-3 days and any other recommended physicians. If prescribed, take all medications as directed. If you have any questions or concerns do not hesitate to return the emergency department for evaluation. Prescriptions: Ondansetron [Zofran Odt 4 mg Tablet] 1 tab PO Q8H PRN #15 tab.rapdis PRN Reason: For Nausea/Vomiting Forms: Return to Work Referrals: [facility] [Provider Group] - Follow up in 3-5 days (or your primary care. )
== END 2018-02-26 10:26 | disposition home or self-care (01) ==
LOC: ER 09:46
DX: R11.2 Nausea with vomiting, unspecified (principal); M54.9 Dorsalgia, unspecified; M54.5 Low back pain; F17.210 Nicotine dependence, cigarettes, uncomplicated
CPT/HCPCS: 99283

== ENCOUNTER 2018-04-15 10:53 | Emergency (ER) | payer MEDICARE, MEDICAID ==
[2018-04-15 11:00] VITALS: BP 151/101
--- NOTE | 2018-04-15 11:28 | ER Document Report ---
ED Respiratory Problem - General Chief Complaint: Cough Stated Complaint: COUGH/BACK PAIN Time Seen by Provider: 04/15/18 11:03 Mode of Arrival: Ambulatory Information source: Patient Notes: 38-year-old male presents to ED for cough cold congestion and back pain with coughing times 3 days. He is alert oriented respirations regular and unlabored speaking in full sentences. His blood pressure is very elevated and has been the last several times he has been here. He does not follow-up with her primary doctor. He has been told multiple times he needs to get a primary doctor and follow-up with this. He states he will call Monday and get himself a primary doctor as he does have Medicaid. She is alert and oriented respirations regular and unlabored speaking in full sentences does state that he has a little bit of pain in his back from the cough. TRAVEL OUTSIDE OF THE [place] IN LAST 30 DAYS: No - HPI Patient complains to provider of: Cough Onset: Other Duration: Continuous - 3 days Initiating Event: URI Quality of pain: Achy Pain Level: 2 Context: Smoker Chest pain/discomfort: Pain Cough: Nonproductive - With cough Sputum amount: Small - Same color as his nasal drainage Associated symptoms: Chest pain/discomfort - With cough, Cough, PND, Runny nose, Sinus pain/pressure, Short of breath Similar symptoms previously: Yes Recently seen / treated by doctor: No - Related Data Allergies/Adverse Reactions: No Known Allergies Allergy (Verified 04/15/18 10:56) Past Medical History - General Information source: Patient - Social History Smoking Status: Current Every Day Smoker Cigarette use (# per day): Yes - 1/2-1 pack/day Chew tobacco use (# tins/day): No Smoking Education Provided: Yes - 4 minutes Frequency of alcohol use: None Drug Abuse: None Lives with: Family Family History: Arthritis, COPD, CVA, Hypertension, Malignancy, Thyroid Disfunction Patient has suicidal ideation: No Patient has homicidal ideation: No - Past Medical History Cardiac Medical History: Reports: Hx Hypertension Pulmonary Medical History: Reports: Hx Bronchitis EENT Medical History: Reports: None Neurological Medical History: Reports: None Endocrine Medical History: Reports: None Renal/ Medical History: Reports: None Malignancy Medical History: Reports None GI Medical History: Reports: None Musculoskeletal Medical History: Reports Hx Arthritis - right shoulder, Reports Hx Musculoskeletal Trauma - Chronic back pain after a back injury Skin Medical History: Reports Hx Cellulitis Psychiatric Medical History: Reports: Hx Anxiety, Hx Depression - anxiety Traumatic Medical History: Reports: None Infectious Medical History: Reports: None Surgical Hx: Negative Past Surgical History: Reports: None, Other - Circumcised - Immunizations Immunizations up to date: Yes Hx Diphtheria, Pertussis, Tetanus Vaccination: Yes - 2012 Review of Systems - Review of Systems Constitutional: Recent illness EENT: Nose discharge, Sinus pressure, Sinus discharge Cardiovascular: No symptoms reported Respiratory: Cough Gastrointestinal: No symptoms reported Genitourinary: No symptoms reported Male Genitourinary: No symptoms reported Musculoskeletal: No symptoms reported Skin: No symptoms reported Hematologic/Lymphatic: No symptoms reported Neurological/Psychological: No symptoms reported -: Yes All other systems reviewed and negative Physical Exam - Vital signs Vitals: Temp Pulse Resp BP Pulse Ox 98.6 F 102 H 18 151/101 H 97 04/15/18 10:59 04/15/18 10:59 04/15/18 10:59 04/15/18 10:59 04/15/18 10:59 Interpretation: Hypertensive - General General appearance: Appears well, Alert - HEENT Head: Normocephalic, Atraumatic Eyes: Normal Pupils: PERRL Ears: Normal External canal: Normal Tympanic membrane: Normal Sinus: Normal Nasal: Purulent discharge, Swelling Mouth/Lips: Normal Mucous membranes: Normal Pharynx: Post nasal drainage Neck: Normal - Respiratory Respiratory status: No respiratory distress Chest status: Nontender Breath sounds: Productive cough. No: Rales, Rhonchi, Stridor, Wheezing Chest palpation: Normal - Cardiovascular Rhythm: Regular Heart sounds: Normal auscultation Murmur: No - Abdominal Inspection: Normal Distension: No distension Bowel sounds: Normal Tenderness: Nontender Organomegaly: No organomegaly - Back Back: Normal, Nontender - Extremities General upper extremity: Normal inspection, Nontender, Normal color, Normal ROM, Normal temperature General lower extremity: Normal inspection, Nontender, Normal color, Normal ROM, Normal temperature, Normal weight bearing. No: Cesar's sign - Neurological Neuro grossly intact: Yes Cognition: Normal Orientation: AAOx4 [place] Coma Scale Eye Opening: Spontaneous [place] Coma Scale Verbal: Oriented [place] Coma Scale Motor: Obeys Commands [place] Coma Scale Total: 15 Speech: Normal Motor strength normal: LUE, RUE, LLE, RLE Sensory: Normal - Psychological Associated symptoms: Normal affect, Normal mood - Skin Skin Temperature: Warm Skin Moisture: Dry Skin Color: Normal Course - Re-evaluation Re-evalutation: 04/15/18 13:40 After performing a Medical Screening Examination, I estimate there is LOW risk for ACUTE CORONARY SYNDROME, RESPIRATORY FAILURE, SEPSIS OR MENINGITIS, thus I consider the discharge disposition reasonable. I have reevaluated this patient multiple times and no significant life threatening changes are noted. The patient and I have discussed the diagnosis and risks, and we agree with discharging home with close follow-up. We also discussed returning to the Emergency Department immediately if new or worsening symptoms occur. We have discussed the symptoms which are most concerning (e.g., changing or worsening pain, trouble swallowing or breathing, neck stiffness, fever) that necessitate immediate return. Patient was given a small dose of Flexeril for his back pain from his cough. Otherwise he was told him that he needed to follow-up with primary care doctor tomorrow to get his blood pressure under control before he had system damage from his high blood pressure. Patient verbalized that he would call first thing in the morning and get a primary doctor appointment. - Vital Signs Vital signs: Temp Pulse Resp BP Pulse Ox 98.6 F 102 H 18 151/101 H 97 04/15/18 10:59 04/15/18 10:59 04/15/18 10:59 04/15/18 10:59 04/15/18 10:59 Discharge - Discharge Clinical Impression: Upper back pain URI (upper respiratory infection) Qualifiers: URI type: unspecified URI Qualified Code(s): J06.9 - Acute upper respiratory infection, unspecified Condition: Stable Disposition: HOME, SELF-CARE Instructions: Family Physicians / Practices Additional Instructions: Your blood pressure has been high the last several visits you have been here you have been told each time to go to her primary care doctor this blood pressure but can become very serious and destroyed your organs please follow-up with your primary doctor promptly to get this blood pressure under control UPPER RESPIRATORY ILLNESS: You have a viral infection of the respiratory passages -- a "cold." This common infection causes nasal congestion, drainage, and often sore throat and cough. It is highly contagious. The disease usually lasts about 10 to 14 days. There is no "cure" for the viral infection -- it must run its course. If there is a complication, such as bacterial infection in the nose, sinuses, middle ear, or bronchial tubes, antibiotics may be required. The antibiotics won't affect the virus. Drink plenty of fluids. A humidifier may help. An expectorant medication or decongestant may make you more comfortable. Use acetaminophen or ibuprofen for fever or aches. See the doctor if fever persists over two days, if there is any significant worsening of your symptoms, or if you simply fail to improve as expected. COUGH-SUPPRESSANT & EXPECTORANT MEDICATION: You are to use a cough medication as needed for relief of symptoms. This medicine is a combination of an expectorant (to make the mucous thinner and more easily "coughed up") and a cough suppressant (to reduce the frequency of coughing). The cough-suppressant medicine is related to narcotics. You may experience mild nausea and sleepiness. Some patients who are very sensitive to narcotics may have stomach pain from this medicine. Taking the medicine with food reduces these side effects. Do not drive or work with machinery until you know how this medicine affects you. The expectorant should have no side effects. Iodine-containing expectorants (such as organidin) should not be taken by persons with active thyroid disease unless approved by your doctor. Call the doctor if you develop shortness of breath, hives, rash, itching, lightheadedness, or severe nausea and vomiting. Myalagia (Muscle Pain) Myalgia is pain in the muscles. We use the word myalgia to describe muscle pain where there's no history of injury, no known muscle disease, and the muscles are normal to examination. Myalgias can be a symptom of an acute illness, such as influenza, hepatitis, or any viral illness, especially with fever. Sometimes the muscle pain comes before any other symptoms. Myalgia can also be an early symptom of inflammatory muscle disease, such as lupus. If myalgia is accompanied by an acute illness that explains the muscle pain, then no further testing needs to be done. When there's no clear reason for the pain, tests may be done to see if there's an inflammatory or other disease of the muscles. The usual treatment for myalgias is anti-inflammatory medication, such as ibuprofen. Muscle aches may be soothed with a heating pad or hot compress. If muscles remain painful for more than a few days, you'll need testing and followup. Return if a muscle becomes swollen, red, or severely painful. Muscle Relaxers Muscle relaxing medications are usually prescribed for acute muscle spasm or injury to the neck and back. They are often combined with antiinflammatory pain medication for increased relief. You may stop the muscle relaxer when the pain and stiffness have improved. Start the medication again if spasms recur. Muscle relaxers may cause drowsiness, especially with the first dose. Do not operate machinery or drive while under the effects of the medication. Most muscle relaxers last up to 24 hours. Do not combine the medication with alcohol. USE OF ACETAMINOPHEN (Tylenol): Acetaminophen may be taken for pain relief or fever control. It's much safer than aspirin, offering a wider range of "safe" dosages. It is safe during . Some brand names are Tylenol, Panadol, Datril, Anacin 3, Tempra, and Liquiprin. Acetaminophen can be repeated every four hours. The following are maximum recommended dosages: >89 pounds or adults 650 mg to 900 mg Acetaminophen can be repeated every four hours. Maximum dose not to exceed 4000 mg a day. SMOKING: If you smoke, you should stop smoking. The tar and chemicals in cigarette smoke are harmful. Smoking has been shown to cause: emphysema chronic bronchitis lung cancer mouth and throat cancer stomach and pancreas cancer premature aging defects In addition, smoking increases ear and lung infections in children of smokers. FOLLOW-UP CARE: If you have been referred to a physician for follow-up care, call the physicians office for an appointment as you were instructed or within the next two days. If you experience worsening or a significant change in your symptoms, notify the physician immediately or return to the Emergency Department at any time for re-evaluation. Prescriptions: Cyclobenzaprine HCl [Flexeril 5 mg Tablet] 5 mg PO TID #15 tablet Forms: Elevated Blood Pressure, Smoking Cessation Education
== END 2018-04-15 11:31 | disposition home or self-care (01) ==
LOC: ER 10:53
DX: J06.9 Acute upper respiratory infection, unspecified (principal); M54.89 Other dorsalgia; R05 Cough; I10 Essential (primary) hypertension; R07.9 Chest pain, unspecified; R09.82 Postnasal drip; J34.89 Other specified disorders of nose and nasal sinuses; R06.02 Shortness of breath; F17.210 Nicotine dependence, cigarettes, uncomplicated; Z71.6 Tobacco abuse counseling
CPT/HCPCS: 99283; 99406

== ENCOUNTER 2018-04-23 01:42 | Emergency (ER) | payer MEDICARE, MEDICAID ==
--- NOTE | 2018-04-23 02:10 | ER Document Report ---
ED General - General Chief Complaint: Back Pain Stated Complaint: TOP RIGHT BACK PAIN Time Seen by Provider: 04/23/18 01:58 Notes: Patient is a 38-year-old male that comes to the emergency department for chief complaint of pain in his right upper back near his shoulder blade. He states he started feeling this earlier today. Pain is worse with deep breaths. He denies shortness of breath, he states he feels a little pain under his armpit but he does not have any chest pain. He denies fever or chills. He states that since the third of the month he has had an upper respiratory infection although this cough has almost completely resolved now. He denies any daily medications but states that he was told he should be started on blood pressure medication. He smokes. Denies recreational drugs. Denies medical history otherwise. TRAVEL OUTSIDE OF THE [place] IN LAST 30 DAYS: No - Related Data Allergies/Adverse Reactions: No Known Allergies Allergy (Verified 04/23/18 02:02) Past Medical History - General Information source: Patient - Social History Smoking Status: Current Every Day Smoker Smoking Education Provided: Yes - <3 min Frequency of alcohol use: None Drug Abuse: None Lives with: Family Family History: Arthritis, COPD, CVA, Hypertension, Malignancy, Thyroid Disfunction Patient has suicidal ideation: No Patient has homicidal ideation: No - Past Medical History Cardiac Medical History: Reports: Hx Hypertension Denies: Hx Coronary Artery Disease, Hx Heart Attack Pulmonary Medical History: Reports: Hx Bronchitis Denies: Hx Asthma, Hx COPD, Hx Pneumonia Neurological Medical History: Denies: Hx Cerebrovascular Accident, Hx Seizures Renal/ Medical History: Denies: Hx Peritoneal Dialysis Musculoskeletal Medical History: Reports Hx Arthritis - right shoulder, Reports Hx Musculoskeletal Trauma - Chronic back pain after a back injury Skin Medical History: Reports Hx Cellulitis Psychiatric Medical History: Reports: Hx Anxiety, Hx Depression - anxiety Past Surgical History: Reports: Other - Circumcised - Immunizations Immunizations up to date: Yes Hx Diphtheria, Pertussis, Tetanus Vaccination: Yes - 2012 Review of Systems - Review of Systems Constitutional: No symptoms reported EENT: No symptoms reported Cardiovascular: See HPI Respiratory: See HPI Gastrointestinal: No symptoms reported Genitourinary: No symptoms reported Male Genitourinary: No symptoms reported Musculoskeletal: No symptoms reported Skin: No symptoms reported Hematologic/Lymphatic: No symptoms reported Neurological/Psychological: No symptoms reported Physical Exam - Vital signs Vitals: Temp Pulse Resp BP Pulse Ox 98.4 F 106 H 16 171/113 H 98 04/23/18 01:49 04/23/18 01:49 04/23/18 01:49 04/23/18 01:49 04/23/18 01:49 - Notes Notes: GENERAL: Alert, interacts well. No acute distress. HEAD: Normocephalic, atraumatic. EYES: Pupils equal, round, and reactive to light. Extraocular movements intact. ENT: Oral mucosa moist, tongue midline. Oropharynx unremarkable. Airway patent. Nares patent, no nasal septal hematoma, TM's intact. NECK: Full range of motion. Supple. Trachea midline. LUNGS: Clear to auscultation bilaterally, no wheezes, rales, or rhonchi. No r espiratory distress. HEART: Borderline tachycardic, normal rhythm. No murmur ABDOMEN: Soft, non-tender. Non-distended. Bowel sounds present in all 4 quadrants. GENITOURINARY: Deferred EXTREMITIES: Moves all 4 extremities spontaneously. No edema, normal radial and dorsalis pedis pulses bilaterally. No cyanosis. BACK: no cervical, thoracic, lumbar midline tenderness. No saddle anesthesia, normal distal neurovascular exam. NEUROLOGICAL: Alert and oriented x3. Normal speech. [cranial nerves II through XII grossly intact]. PSYCH: Normal affect, normal mood. SKIN: Warm, dry, normal turgor. No rashes or lesions noted. Course - Re-evaluation Re-evalutation: Patient has no pain on palpation or with movement. He only has pain when taking a deep breath and on the right back side. He just recovered from a URI. Patient denies any shortness of breath, he ambulates without difficulty, he denies dyspnea on exertion. He denies any shortness of breath. He states he only feels the pain when he takes a deep breath and he wanted to get checked out as a result. He denies any chest pain. Patient noted to be mildly tachycardic on evaluation, this is borderline, I discussed this with patient, discussed blood work for potential CTA to rule out pulmonary embolism because of the tachycardia and his pleuritic pain. Patient is reporting to me that he just drank a lot of caffeine to stay awake tonight, he does not want to have a CAT scan, he does not have any current symptoms unless he takes a deep breath. I feel this is appropriate based on patient's history and symptoms, he does not have a history of ovarian embolism, lower semi-swelling, recent travel or surgery, no family history of this. I also discussed patient's hypertension, patient repeatedly has been seen and has not been started on medication, he has been failed to follow-up multiple times. I discussed with patient, he will be started on amlodipine, he will follow-up closely, he states he understands this need to be adjusted and he understands the potential catastrophic problems caused by persistent hypertension. Patient agrees to return if he develops dyspnea on exertion, any shortness of breath, chest pain, if he passes out, has a severe headache, or as any other concerning symptoms. Discharged with strict return precautions. - Vital Signs Vital signs: Temp Pulse Resp BP Pulse Ox 97.7 F 108 H 18 158/105 H 99 04/23/18 03:48 04/23/18 03:48 04/23/18 03:48 04/23/18 03:48 04/23/18 03:48 - EKG Interpretation by Me Additional EKG results interpreted by me: EKG reviewed, shows sinus tachycardia, left axis deviation, no T wave inversions or ST segment changes in consecutive leads. Discharge - Discharge Clinical Impression: Inspiratory pain, Essential hypertension Disposition: HOME, SELF-CARE Additional Instructions: Your pain has been diagnosed as probable pleuritis (pleurisy). This is an inflammation of the surface of the lung tissue. It can be caused by a virus or, occasionally, old scar tissue. It is painful but, for the most part, not a serious problem. This pain is usually made worse by deep breathing, coughing, or sudden movements of the upper body or arms. The treatment is relief of symptoms. You have been medicated for this. You can take [id number] Tylenol for symptoms if needed. Symptoms should resolve with time. Warning signs of a more serious problem include: a fever, shortness of breath, pain in your chest, passing out, etc. If any of these symptoms occur, return to the emergency department at once. You have been started on blood pressure medication because of your persistent elevated blood pressures here. This needs to be adjusted. Please follow-up with the provider listed. Call tomorrow to set up your first appointment. Prescriptions: Amlodipine Besylate [Norvasc 5 mg Tablet] 5 mg PO DAILY #30 tablet Forms: Return to Work Referrals: YOLI GRIMM MD [ACTIVE STAFF] - Follow up in 1 week STEVEN PALOMARES MD [ACTIVE STAFF] - Follow up in 1 week
--- NOTE | 2018-04-23 02:44 | RADIOLOGY REPORT (SQ) ---
EXAM DESCRIPTION: XR CHEST 2 VIEWS COMPLETED DATE/TME: 04/23/2018 02:08 CLINICAL HISTORY: 38 years, Male, right back pain, pain with deep breathing COMPARISON: 10/02/2016 chest NUMBER OF VIEWS: 2 TECHNIQUE: Frontal and lateral views of the chest LIMITATIONS: None. FINDINGS: Heart size is normal. Lungs are clear. No pneumothorax IMPRESSION: Negative chest copyright 2010 [facility] [employer]- All Rights Reserved
[2018-04-23] MEDS ORDERED: DEXAMETHASONE SOD PHOS INJ 10 MG/1 ML VIAL IM ONE (03:19)
[2018-04-23 03:50] VITALS: BP 158/105
--- NOTE | 2018-04-24 00:15 | EKG REPORT ---
SEVERITY:- ABNORMAL ECG - SINUS TACHYCARDIA PROBABLE LEFT ATRIAL ABNORMALITY LEFT AXIS DEVIATION LEFT VENTRICULAR HYPERTROPHY : Confirmed by: Cassi Adame 24-Apr-2018 00:14:40
== END 2018-04-23 03:52 | disposition home or self-care (01) ==
LOC: ER 01:42
DX: R07.1 Chest pain on breathing (principal); M54.89 Other dorsalgia; R07.81 Pleurodynia; I10 Essential (primary) hypertension; F17.200 Nicotine dependence, unspecified, uncomplicated
CPT/HCPCS: 93005; 99283; 96372; 71046; 93010; J1100

== ENCOUNTER 2018-05-02 14:46 | Emergency (ER) | payer MEDICARE, MEDICAID ==
--- NOTE | 2018-05-02 17:08 | ER Document Report ---
HPI - HPI Time Seen by Provider: 05/02/18 16:32 Pain Level: 2 Notes: Patient is a 38-year-old male who presents the emergency department with chief complaint of right shoulder pain. 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 He describes pain over the trapezius muscle on the right side. - REPRODUCTIVE Reproductive: DENIES: : Past Medical History - General Information source: Patient - Social History Smoking Status: Never Smoker Frequency of alcohol use: None Drug Abuse: None Family History: Arthritis, COPD, CVA, Hypertension, Malignancy, Thyroid Disfunction - Past Medical History Cardiac Medical History: Reports: Hx Hypertension Denies: Hx Coronary Artery Disease, Hx Heart Attack Pulmonary Medical History: Reports: Hx Bronchitis Denies: Hx Asthma, Hx COPD, Hx Pneumonia Neurological Medical History: Denies: Hx Cerebrovascular Accident, Hx Seizures Renal/ Medical History: Denies: Hx Peritoneal Dialysis Musculoskeletal Medical History: Reports Hx Arthritis - right shoulder, Reports Hx Musculoskeletal Trauma - Chronic back pain after a back injury Skin Medical History: Reports Hx Cellulitis Psychiatric Medical History: Reports: Hx Anxiety, Hx Depression - anxiety Past Surgical History: Reports: Other - Circumcised - Immunizations Immunizations up to date: Yes Hx Diphtheria, Pertussis, Tetanus Vaccination: Yes - 2012 [facility] Provider Document - CONSTITUTIONAL Notes: PHYSICAL EXAMINATION: GENERAL: Well-appearing, well-nourished and in no acute distress. HEAD: Atraumatic, normocephalic. EYES: Pupils equal round extraocular movements intact, conjunctiva are normal. ENT: Nares patent NECK: Normal range of motion LUNGS: No respiratory distress Musculoskeletal: Normal range of motion, tenderness to palpation to right trapezius muscle. Full range of motion to right shoulder. NEUROLOGICAL: Normal speech, normal gait. PSYCH: Normal mood, normal affect. SKIN: Warm, Dry, normal turgor, no rashes or lesions noted. - INFECTION CONTROL TRAVEL OUTSIDE OF THE [place] IN LAST 30 DAYS: No Course - Re-evaluation Re-evalutation: Physical examination is unremarkable. Likely musculoskeletal strain secondary to patient's new job and doing repetitive movements. Patient instructed on use of ibuprofen and doing stretching and shoulder exercises. Patient agreeable to this plan and DC'd home - Vital Signs Vital signs: Temp Pulse Resp BP Pulse Ox 98.5 F 106 H 18 119/96 H 98 05/02/18 15:05 05/02/18 15:05 05/02/18 15:05 05/02/18 15:05 05/02/18 15:05 Discharge - Discharge Clinical Impression: Musculoskeletal strain Condition: Stable Disposition: HOME, SELF-CARE Additional Instructions: Muscle Strain You have strained a muscle -- torn the fibers within the muscle. This often occurs with strenuous exertion, or during an injury that suddenly stretches the muscle. The seriousness of a strain varies. Some strains heal within days, others cause problems for months. X-rays cannot show a muscle strain. X-rays are taken only if symptoms suggest that a fracture could be present. The usual treatment of a muscle strain is rest and ice packs. Sometimes, a sling, splint, or crutches may be necessary to rest the muscle. The muscle can be used again once pain subsides. Severe strains require a special exercise and stretching program to prevent permanent stiffness and disability. Your doctor will advise you if this will be necessary. Call the doctor immediately if pain or swelling becomes severe, or if numbness or discoloration develop. Prescriptions: Ibuprofen [Motrin 800 mg Tablet] 800 mg PO Q8H PRN #30 tab PRN Reason: Forms: Return to Work
[2018-05-02 17:21] VITALS: BP 131/93
== END 2018-05-02 17:26 | disposition home or self-care (01) ==
LOC: ER 14:46
DX: S46.911A Strain of unspecified muscle, fascia and tendon at shoulder and upper arm level, right arm, initial encounter (principal); X58.XXXA Exposure to other specified factors, initial encounter; Y99.0 Civilian activity done for income or pay; I10 Essential (primary) hypertension
CPT/HCPCS: 99283

== ENCOUNTER 2018-09-05 22:43 | Emergency (ER) | payer MEDICARE, MEDICAID ==
--- NOTE | 2018-09-06 00:03 | RADIOLOGY REPORT (SQ) ---
EXAM DESCRIPTION: Left hand [facility]: XR HAND 3 OR MORE VIEWS Views: 3 CLINICAL HISTORY: 38 years Male, pain COMPARISON: None. FINDINGS: Negative for acute fracture, dislocation, or radiopaque foreign body. IMPRESSION: 1. No acute findings.
[2018-09-06] MEDS ORDERED: ACETAMINOPHEN 325 MG TABLET PO ONE (02:44)
[2018-09-06] MEDS ORDERED: IBUPROFEN 600 MG TABLET PO ONE (02:44)
--- NOTE | 2018-09-06 02:46 | ER Document Report ---
ED General - General Chief Complaint: Hand Injury Stated Complaint: POSSIBLE FINGER INJURY Time Seen by Provider: 09/06/18 02:33 TRAVEL OUTSIDE OF THE [place] IN LAST 30 DAYS: No - Related Data Allergies/Adverse Reactions: No Known Allergies Allergy (Verified 05/02/18 14:48) Past Medical History - Social History Family History: Arthritis, COPD, CVA, Hypertension, Malignancy, Thyroid Disfunction - Past Medical History Cardiac Medical History: Reports: Hx Hypertension Denies: Hx Coronary Artery Disease, Hx Heart Attack Pulmonary Medical History: Reports: Hx Bronchitis Denies: Hx Asthma, Hx COPD, Hx Pneumonia Neurological Medical History: Denies: Hx Cerebrovascular Accident, Hx Seizures Renal/ Medical History: Denies: Hx Peritoneal Dialysis Musculoskeletal Medical History: Reports Hx Arthritis - right shoulder, Reports Hx Musculoskeletal Trauma - Chronic back pain after a back injury Skin Medical History: Reports Hx Cellulitis Psychiatric Medical History: Reports: Hx Anxiety, Hx Depression - anxiety Past Surgical History: Reports: Other - Circumcised - Immunizations Immunizations up to date: Yes Hx Diphtheria, Pertussis, Tetanus Vaccination: Yes - 2012 Physical Exam - Vital signs Vitals: Temp Pulse Resp BP Pulse Ox 98.2 F 108 H 20 137/103 H 99 09/05/18 23:04 09/05/18 23:04 09/05/18 23:04 09/05/18 23:04 09/05/18 23:04 Course - Vital Signs Vital signs: Temp Pulse Resp BP Pulse Ox 98.2 F 108 H 20 137/103 H 99 09/05/18 23:04 09/05/18 23:04 09/05/18 23:04 09/05/18 23:04 09/05/18 23:04 Discharge - Discharge Clinical Impression: Thumb contusion Qualifiers: Encounter type: initial encounter Damage to nail status: without damage Laterality: right Qualified Code(s): S60.011A - Contusion of right thumb without damage to nail, initial encounter Condition: Good Disposition: HOME, SELF-CARE Instructions: Contusion ([facility]), Sprained Finger ([facility]) Additional Instructions: Please take Tylenol and Motrin as needed for discomfort. Please ice your thumb when possible. Forms: Elevated Blood Pressure, Return to Work
[2018-09-06] MEDS ORDERED: AMLODIPINE BESYLATE 10 MG TABLET PO ONE (02:49)
--- NOTE | 2018-09-06 02:53 | ER Document Report ---
ED General - General Chief Complaint: Hand Injury Stated Complaint: POSSIBLE FINGER INJURY Time Seen by Provider: 09/06/18 02:33 Mode of Arrival: Ambulatory Information source: Patient Notes: 38-year-old male with hypertension presents with left thumb pain. Patient states that one week prior to arrival he jammed his left thumb into the car door. He has been experiencing pain, mild swelling since that time. Patient also admits to being noncompliant with his blood pressure medication for the last several days. TRAVEL OUTSIDE OF THE [place] IN LAST 30 DAYS: No - HPI Onset: Last week Onset/Duration: Gradual, Persistent Quality of pain: Achy Severity: Mild Associated symptoms: denies: Chest pain, Fever, Nausea, Vomiting, Shortness of breath Exacerbated by: Movement Relieved by: Remaining still Similar symptoms previously: No Recently seen / treated by doctor: No - Related Data Allergies/Adverse Reactions: No Known Allergies Allergy (Verified 05/02/18 14:48) Past Medical History - General Information source: Patient, [facility] Records - Social History Smoking Status: Current Every Day Smoker Cigarette use (# per day): Yes - 10 Smoking Education Provided: Yes - Smoking cessation counseling was provided for 4 minutes at the bedside Frequency of alcohol use: Occasional Drug Abuse: None Lives with: Family Family History: Arthritis, COPD, CVA, Hypertension, Malignancy, Thyroid Disfunction - Past Medical History Cardiac Medical History: Reports: Hx Hypertension Denies: Hx Coronary Artery Disease, Hx Heart Attack Pulmonary Medical History: Reports: Hx Bronchitis Denies: Hx Asthma, Hx COPD, Hx Pneumonia Neurological Medical History: Denies: Hx Cerebrovascular Accident, Hx Seizures Renal/ Medical History: Denies: Hx Peritoneal Dialysis Musculoskeletal Medical History: Reports Hx Arthritis - right shoulder, Reports Hx Musculoskeletal Trauma - Chronic back pain after a back injury Skin Medical History: Reports Hx Cellulitis Psychiatric Medical History: Reports: Hx Anxiety, Hx Depression - anxiety Past Surgical History: Reports: Other - Circumcised - Immunizations Immunizations up to date: Yes Hx Diphtheria, Pertussis, Tetanus Vaccination: Yes - 2012 Review of Systems - Review of Systems Notes: REVIEW OF SYSTEMS: CONSTITUTIONAL : Denies fever, chills, or sweats. Denies recent illness. Denies weight loss, recent hospitalizations. EENT: Denies visual changes, eye pain. Denies sore throat, oral lesions, difficulty swallowing. CARDIOVASCULAR: Denies chest pain. Denies palpitations. Denies lower extremity edema. RESPIRATORY: Denies cough. Denies shortness of breath, wheezing. GASTROINTESTINAL: Denies abdominal pain or distention. Denies nausea, vom iting, or diarrhea. Denies blood in vomitus, stools, or per rectum. Denies black, tarry stools. Denies constipation. GENITOURINARY: Denies difficulty urinating, painful urination, frequency, bl ood in urine, testicular pain or penile discharge. MUSCULOSKELETAL: Denies back or neck pain or stiffness. + joint pain or swelling. SKIN: Denies rash, lesions or sores. HEMATOLOGIC : Denies easy bruising or bleeding. LYMPHATIC: Denies swollen glands. NEUROLOGICAL: Denies confusion or altered mental status. Denies loss of consciousness. Denies dizziness or lightheadedness. Denies headache. Denies weakness or paralysis. Denies problems difficulty with ambulation, slurred speech. Denies sensory loss, numbness, or tingling. Denies seizures. PSYCHIATRIC: Denies anxiety or stress. Denies depression, suicidal ideation, or Physical Exam - Vital signs Vitals: Temp Pulse Resp BP Pulse Ox 98.2 F 108 H 20 137/103 H 99 09/05/18 23:04 09/05/18 23:04 09/05/18 23:04 09/05/18 23:04 09/05/18 23:04 - Notes Notes: PHYSICAL EXAMINATION: GENERAL: Well-appearing, well-nourished and in no acute distress. HEAD: Atraumatic, normocephalic. EYES: Pupils equal round and reactive to light, extraocular movements intact, sclera anicteric, conjunctiva are normal. ENT: Nares patent, oropharynx clear without exudates. Moist mucous membranes. NECK: Normal range of motion, supple without lymphadenopathy LUNGS: Breath sounds clear to auscultation bilaterally and equal. No wheezes rales or rhonchi. HEART: Regular rate and rhythm without murmurs ABDOMEN: Soft, nontender, nondistended abdomen. No guarding, no rebound. No masses appreciated. Musculoskeletal: Normal range of motion, no pitting or edema. No cyanosis. NEUROLOGICAL: Cranial nerves grossly intact. Normal speech, normal gait. Normal sensory, motor exams PSYCH: Normal mood, normal affect. SKIN: Warm, Dry, normal turgor, no rashes or lesions noted. Course - Re-evaluation Re-evalutation: 09/06/18 02:50 Hand X-Ray 09/05/18 23:08 IMPRESSION: 1. No acute findings. Temp Pulse Resp BP Pulse Ox 98.2 F 108 H 20 137/103 H 99 09/05/18 23:04 09/05/18 23:04 09/05/18 23:04 09/05/18 23:04 09/05/18 23:04 09/06/18 02:51 38-year-old male presents with left thumb pain. He is right-hand dominant. X- rays were obtained and negative for any acute findings. Patient has full range of motion, no swelling, no deformity, sensation intact. Vital signs do reveal elevated blood pressure but patient has been noncompliant with his amlodipine. He was given 10 mg of amlodipine here. Patient also received Motrin and Tylenol. Patient was evaluated and treated as appropriate for the patient's presenting symptoms and complaint, with consideration of any critical or life threatening conditions that may be associated with their obtained history and exam as noted above. All results were discussed with patient. Patient provided the opportunity to ask questions, and express concerns. Patient was educated on treatments based on their presumed diagnosis as noted above. At this time we will discharge the patient with return precautions and follow-up recommendations. Verbal discharge instructions given a the bedside. Medication warnings reviewed. Patient is in agreement with this plan and has verbalized understanding of return precautions. After careful consideration I feel that that patient can be safely discharged from the emergency department, they were advised to followup with a primary care physician in 2-3 days. Dictation on this chart was performed using voice recognition software and may result in unintended grammatical, spelling, syntax or errors. - Vital Signs Vital signs: Temp Pulse Resp BP Pulse Ox 98.2 F 108 H 20 137/103 H 99 09/05/18 23:04 09/05/18 23:04 09/05/18 23:04 09/05/18 23:04 09/05/18 23:04 - Diagnostic Test Radiology reviewed: Image reviewed, Reports reviewed Discharge - Discharge Clinical Impression: Thumb contusion Qualifiers: Encounter type: initial encounter Damage to nail status: without damage Laterality: right Qualified Code(s): S60.011A - Contusion of right thumb without damage to nail, initial encounter Condition: Good Disposition: HOME, SELF-CARE Instructions: Contusion ([facility]), Sprained Finger ([facility]) Additional Instructions: Please take Tylenol and Motrin as needed for discomfort. Please ice your thumb when possible. Forms: Elevated Blood Pressure, Return to Work
[2018-09-06 03:37] VITALS: BP 145/105
== END 2018-09-06 03:41 | disposition home or self-care (01) ==
LOC: ER 22:43
DX: S60.012A Contusion of left thumb without damage to nail, initial encounter (principal); S60.011A Contusion of right thumb without damage to nail, initial encounter; W22.8XXA Striking against or struck by other objects, initial encounter; M79.645 Pain in left finger(s); I10 Essential (primary) hypertension; Z91.14 Patient's other noncompliance with medication regimen; F17.210 Nicotine dependence, cigarettes, uncomplicated; Z71.6 Tobacco abuse counseling
CPT/HCPCS: 99406; 99283; 73130; A9270 ×3

== ENCOUNTER 2019-03-11 10:28 | Emergency (ER) | payer OTHER, MEDICARE, MEDICAID ==
[2019-03-11] MEDS ORDERED: DIPH/PERTUSS(ACELL)/TETANUS VAC/PF 0.5 ML SYR (>=10YO) IM ONE (11:13)
[2019-03-11] MEDS ORDERED: OXYCODONE-ACETAMINOPHEN 5-325 MG TABLET PO ONE (11:13)
[2019-03-11] MEDS ORDERED: LIDOCAINE 1%/EPINEPHRINE INJ 20 ML VIAL INJ ONE (11:14)
--- NOTE | 2019-03-11 11:16 | ER Document Report ---
ED Medical Screen (RME) - General Chief Complaint: Facial Injury Stated Complaint: FACAIL INJURY Time Seen by Provider: 03/11/19 11:09 Mode of Arrival: Ambulatory Information source: Patient Notes: Patient states he was at work and was pulling a 2 x 4. Patient states another coworker pushed on the board really hard and the board came back hitting him in the face. Patient with laceration to the bridge of the nose. Patient with injected sclera right eye with linear erythematous estrada across the sclera. Patient denies any change in vision or eye pain. I have greeted and performed a rapid initial assessment of this patient. A comprehensive ED assessment and evaluation of the patient, analysis of test results and completion of the medical decision making process will be conducted by additional ED providers. TRAVEL OUTSIDE OF THE [place] IN LAST 30 DAYS: No - Related Data Allergies/Adverse Reactions: No Known Allergies Allergy (Verified 03/11/19 10:58) Past Medical History - Social History Chew tobacco use (# tins/day): No Frequency of alcohol use: None Drug Abuse: None Family history: Hypertension - Past Medical History Cardiac Medical History: Reports: Hx Hypertension Denies: Hx Coronary Artery Disease, Hx Heart Attack Pulmonary Medical History: Reports: Hx Bronchitis Denies: Hx Asthma, Hx COPD, Hx Pneumonia Neurological Medical History: Denies: Hx Cerebrovascular Accident, Hx Seizures Renal/ Medical History: Denies: Hx Peritoneal Dialysis Musculoskeltal Medical History: Reports Hx Arthritis - right shoulder, Reports Hx Musculoskeletal Trauma - Chronic back pain after a back injury Skin Medical History: Reports Hx Cellulitis Psychiatric Medical History: Reports: Hx Anxiety, Hx Depression - anxiety Past Surgical History: Reports: Other - Circumcised - Immunizations Immunizations up to date: Yes Hx Diphtheria, Pertussis, Tetanus Vaccination: Yes - 2012 Physical Exam - Vital signs Vitals: Temp Pulse Resp BP Pulse Ox 97.8 F 102 H 20 144/111 H 97 03/11/19 10:38 03/11/19 10:38 03/11/19 10:38 03/11/19 10:38 03/11/19 10:38 - General General appearance: Alert Notes: Injected sclera of right eye with erythematous linear estrada across the sclera, laceration to bridge of nose Course - Vital Signs Vital signs: Temp Pulse Resp BP Pulse Ox 97.8 F 102 H 20 144/111 H 97 03/11/19 10:38 03/11/19 10:38 03/11/19 10:38 03/11/19 10:38 03/11/19 10:38
--- NOTE | 2019-03-11 12:34 | RADIOLOGY REPORT (SQ) ---
EXAM DESCRIPTION: CT FACIAL AREA WITHOUT COMPLETED DATE/TIME: 03/11/2019 11:31 am REASON FOR STUDY: board struck face, nose/R eye injury COMPARISON: None. TECHNIQUE: Noncontrasted images through the facial bones and orbits windowed for bone and soft tissu e. Additional coronal and sagittal reconstructed images reviewed. All images stored on PACS. All CT scanners at this facility use dose modulation, iterative reconstruction, and/or weight based d osing when appropriate to reduce radiation dose to as low as reasonably achievable (ALARA). [facility]: Dose Right [facility]: CareDose [facility]: Dose Right [facility]: Teradose 4D [facility]: [employer] RADIATION DOSE: CT Rad equipment meets quality standard of care and radiation dose reduction techniq ues were employed. CTDIvol: 30.4 mGy. DLP: 617 mGy-cm. mGy. LIMITATIONS: None. FINDINGS: FACIAL BONES: Acute nondisplaced right orbital floor fracture, best shown on coronal recon struction images 23 through 27. Minimal hemorrhage along the roof of the right maxillary sinus witho ut CT evidence of entrapment of the right inferior rectus muscle or orbital fat. Air bubbles are present along the right medial orbital wall, lamina papyracea on coronal images 20-24 . Findings could represent air dissecting up from the orbital floor fracture. A hairline nondisplac ed medial orbital wall fracture could not be excluded. Remainder of the study demonstrates no other facial fractures. ORBITS: Right orbital floor fracture. Globes, optic nerves, intra and extraconal fat, extraocular mu scles are intact. No proptosis. No retrobulbar hematoma. PARANASAL SINUSES: Air-fluid level right maxillary sinus likely related to hemorrhage from nondepress ed right orbital floor fracture. Remainder of the paranasal sinuses are clear. SOFT TISSUES: No mass or edema. INFERIOR BRAIN: Focal encephalomalacia anterior left temporal lobe likely from old trauma. OTHER: Extensive dental caries. Calcifications along tongue ring IMPRESSION: Nondepressed right orbital floor fracture. Trace extraconal orbital air medially along the right orbital wall. Nondepressed medial right orbita l wall fracture may be present TECHNICAL DOCUMENTATION: JOB ID: [id number] Quality ID # [id number]: Final reports with documentation of one or more dose reduction techniques (e.g., Au tomated exposure control, adjustment of the mA and/or kV according to patient size, use of iterative reconstruction technique) 2010 [employer]- All Rights Reserved Reading location - IP/workstation name: [email or web address]
--- NOTE | 2019-03-11 13:02 | ER Document Report ---
ED General - General Chief Complaint: Facial Injury Stated Complaint: FACIAL INJURY Time Seen by Provider: 03/11/19 11:09 Mode of Arrival: Ambulatory Notes: 39 year old male struck in face a short time ago at work accidently. He was struck on the bridge of the nose with a board. No loc but some dizziness and right eye redness with laceration - approx 1.2 cm - over bridge of nose towards right eye. No visual change. No other injury. No vomiting and no neck pain. TRAVEL OUTSIDE OF THE [place] IN LAST 30 DAYS: No - HPI Onset: This morning Onset/Duration: Sudden Quality of pain: Achy Severity: Mild - Related Data Allergies/Adverse Reactions: No Known Allergies Allergy (Verified 03/11/19 10:58) Past Medical History - General Information source: Patient - Social History Smoking Status: Current Every Day Smoker Chew tobacco use (# tins/day): No Frequency of alcohol use: None Drug Abuse: None Family History: Arthritis, COPD, CVA, Hypertension, Malignancy, Thyroid Disfunction Patient has suicidal ideation: No Patient has homicidal ideation: No - Past Medical History Cardiac Medical History: Reports: Hx Hypertension Denies: Hx Coronary Artery Disease, Hx Heart Attack Pulmonary Medical History: Reports: Hx Bronchitis Denies: Hx Asthma, Hx COPD, Hx Pneumonia Neurological Medical History: Denies: Hx Cerebrovascular Accident, Hx Seizures Renal/ Medical History: Denies: Hx Peritoneal Dialysis Musculoskeletal Medical History: Reports Hx Arthritis - right shoulder, Reports Hx Musculoskeletal Trauma - Chronic back pain after a back injury Skin Medical History: Reports Hx Cellulitis Psychiatric Medical History: Reports: Hx Anxiety, Hx Depression - anxiety Past Surgical History: Reports: Other - Circumcised - Immunizations Immunizations up to date: Yes Hx Diphtheria, Pertussis, Tetanus Vaccination: Yes - 2012 Review of Systems - Review of Systems Constitutional: No symptoms reported EENT: Nose pain, Other - redness to right eye. denies: No symptoms reported Cardiovascular: No symptoms reported Respiratory: No symptoms reported Gastrointestinal: No symptoms reported Genitourinary: No symptoms reported Male Genitourinary: No symptoms reported Musculoskeletal: No symptoms reported Skin: No symptoms reported Hematologic/Lymphatic: No symptoms reported Neurological/Psychological: No symptoms reported Physical Exam - Vital signs Vitals: Temp Pulse Resp BP Pulse Ox 97.8 F 102 H 20 144/111 H 97 03/11/19 10:38 03/11/19 10:38 03/11/19 10:38 03/11/19 10:38 03/11/19 10:38 Interpretation: Normal - General General appearance: Appears well, Alert - HEENT Head: Normocephalic, Atraumatic Eyes: Normal Conjunctiva: Other - subconj hemorrhage and mild scleral injection. Pupils: PERRL - Respiratory Respiratory status: No respiratory distress Chest status: Nontender Breath sounds: Normal Chest palpation: Normal - Cardiovascular Rhythm: Regular Heart sounds: Normal auscultation Murmur: No - Abdominal Inspection: Normal Distension: No distension Bowel sounds: Normal Tenderness: Nontender Organomegaly: No organomegaly - Back Back: Normal, Nontender - Extremities General upper extremity: Normal inspection, Nontender, Normal color, Normal ROM, Normal temperature General lower extremity: Normal inspection, Nontender, Normal color, Normal ROM, Normal temperature, Normal weight bearing. No: Cesar's sign - Neurological Neuro grossly intact: Yes Cognition: Normal Orientation: AAOx4 Yanni Coma Scale Eye Opening: Spontaneous Yanni Coma Scale Verbal: Oriented Yanni Coma Scale Motor: Obeys Commands Yanni Coma Scale Total: 15 Speech: Normal Motor strength normal: LUE, RUE, LLE, RLE Sensory: Normal - Psychological Associated symptoms: Normal affect, Normal mood - Skin Skin Temperature: Warm Skin Moisture: Dry Skin Color: Normal Course - Re-evaluation Re-evalutation: 03/12/19 14:36 mdm 39 year old with laceration repaired here and follow up arranged with opthamology and ENT for follow up. 03/12/19 14:39 The nursing staff has contacted the pt and he has had the follow up instructions explained by both me and the nursing staff. He has expressed understanding. He will see opthamology in the am 03/12 and then ENT will contact him regarding the follow up of the orbit fx. - Vital Signs Vital signs: Temp Pulse Resp BP Pulse Ox 98.2 F 80 18 146/98 H 99 03/11/19 13:41 03/11/19 13:41 03/11/19 13:41 03/11/19 13:41 03/11/19 13:41 - Diagnostic Test Radiology reviewed: Reports reviewed Procedures - Laceration/Wound Repair Right Face Wound length (cm): 1.2 Wound's Depth, Shape: Superficial Anesthetic type: 1% Lidocaine Volume Anesthetic (mLs): 3 Wound explored: Clean Wound Repaired With: Sutures Suture Size/Type: 5:0, Ethilon Number of Sutures: 3 Layer Closure?: No Discharge - Discharge Clinical Impression: Facial laceration Qualifiers: Encounter type: initial encounter Qualified Code(s): S01.81XA - Laceration without foreign body of other part of head, initial encounter Subconjunctival hemorrhage Qualifiers: Laterality: right Qualified Code(s): H11.31 - Conjunctival hemorrhage, right eye Contusion Qualifiers: Encounter type: initial encounter Contusion area: head Contusion of head detail: orbital tissues Laterality: right Qualified Code(s): S05.11XA - Contusion of eyeball and orbital tissues, right eye, initial encounter Condition: Good Disposition: HOME, SELF-CARE Instructions: Laceration Care ([facility]), Tetanus Immunization Given ([facility]) Additional Instructions: Sutures out Thursday 03/15. Rest, fluids, medicines as directed. Please return here for any problems or any concerns. Take tylenol as needed for pain. Prescriptions: Cephalexin Monohydrate [Keflex 500 mg Capsule] 500 mg PO TID #30 capsule Forms: Elevated Blood Pressure, Return to Work
[2019-03-11] MEDS ORDERED: ACETAMINOPHEN 325 MG TABLET PO ONE (13:33)
[2019-03-11 13:42] VITALS: BP 146/98
== END 2019-03-11 13:42 | disposition home or self-care (01) ==
LOC: ER 10:28
PROC: 0HQ1XZZ Repair Face Skin, External Approach (ICD-10-PCS; principal; 2019-03-11)
DX: S01.81XA Laceration without foreign body of other part of head, initial encounter (principal); S05.11XA Contusion of eyeball and orbital tissues, right eye, initial encounter; H11.31 Conjunctival hemorrhage, right eye; R42 Dizziness and giddiness; H57.11 Ocular pain, right eye; W22.8XXA Striking against or struck by other objects, initial encounter; F17.200 Nicotine dependence, unspecified, uncomplicated; I10 Essential (primary) hypertension
CPT/HCPCS: 99284; 90471; 70486; 90715; 12011; J3490

== ENCOUNTER 2019-03-16 10:14 | Emergency (ER) | payer OTHER, MEDICARE, MEDICAID ==
[2019-03-16 10:21] VITALS: BP 158/110
--- NOTE | 2019-03-16 11:23 | ER Document Report ---
HPI - HPI Time Seen by Provider: 03/16/19 11:16 Pain Level: 0 Context: Patient is a 39-year-old male who presents emergency department with a chief complaint of suture removal. Patient reports he has 3 sutures to the right side of his face beside his nose. Patient reports he has had no issues such as drainage or swelling. Patient reports he was told to come yesterday but he was unable to due to work. Patient has no complaints. - CONSTITUTIONAL Constitutional: DENIES: Fever, Chills - REPRODUCTIVE Reproductive: DENIES: : Past Medical History - General Information source: Patient - Social History Smoking Status: Current Every Day Smoker Chew tobacco use (# tins/day): No Frequency of alcohol use: None Lives with: Family Family History: Arthritis, COPD, CVA, Hypertension, Malignancy, Thyroid Disfunction Patient has suicidal ideation: No Patient has homicidal ideation: No - Past Medical History Cardiac Medical History: Reports: Hx Hypertension Denies: Hx Coronary Artery Disease, Hx Heart Attack Pulmonary Medical History: Reports: Hx Bronchitis Denies: Hx Asthma, Hx COPD, Hx Pneumonia EENT Medical History: Reports: None Neurological Medical History: Reports: None. Denies: Hx Cerebrovascular Acci dent, Hx Seizures Endocrine Medical History: Reports: None Renal/ Medical History: Reports: None. Denies: Hx Peritoneal Dialysis Malignancy Medical History: Reports None GI Medical History: Reports: None Musculoskeletal Medical History: Reports Hx Arthritis - right shoulder, Reports Hx Musculoskeletal Trauma - Chronic back pain after a back injury Skin Medical History: Reports Hx Cellulitis Psychiatric Medical History: Reports: Hx Anxiety, Hx Depression - anxiety Traumatic Medical History: Reports: None Infectious Medical History: Reports: None Past Surgical History: Reports: Other - Circumcised - Immunizations Immunizations up to date: Yes Hx Diphtheria, Pertussis, Tetanus Vaccination: Yes - 2013 Vertical Provider Document - CONSTITUTIONAL Agree With Documented VS: Yes Exam Limitations: No Limitations General Appearance: No Apparent Distress - INFECTION CONTROL TRAVEL OUTSIDE OF THE [place] IN LAST 30 DAYS: No - HEENT HEENT: Atraumatic, Normocephalic, PERRLA Notes: 3 sutures noted to the right side of the face, to the right side of the upper nose. - NECK Neck: Normal Inspection - RESPIRATORY Respiratory: Breath Sounds Normal, No Respiratory Distress - CARDIOVASCULAR Cardiovascular: Regular Rate, Regular Rhythm - GI/ABDOMEN Gastrointestinal: Abdomen Soft, Abdomen Non-Tender - MUSCULOSKELETAL/EXTREMETIES Musculoskeletal/Extremeties: FROM, Non-Tender - NEURO Level of Consciousness: Awake, Alert, Appropriate - DERM Integumentary: Warm, Dry, No Rash Course - Re-evaluation Re-evalutation: 03/16/19 11:37 I have greeted and performed a rapid initial assessment of this patient. A comprehensive ED assessment and evaluation of the patient, analysis of test results and completion of the medical decision making process will be conducted by additional ED providers. - Vital Signs Vital signs: Temp Pulse Resp BP Pulse Ox 98.6 F 99 18 158/110 H 95 03/16/19 10:51 03/16/19 10:51 03/16/19 10:51 03/16/19 10:51 03/16/19 10:51 Discharge - Discharge Clinical Impression: Encounter for removal of sutures Condition: Stable Disposition: HOME, SELF-CARE Additional Instructions: Today was seen in emergency department for a suture removal. You did have 3 sutures removed from the right side of your face. You may have a small amount of bleeding, this is to be expected as there was a large amount of dried blood around the sutures. Please keep this clean and dry. You may use an [id number] bacitracin or antibiotic ointment to the site as well as a Band-Aid if it is oozing blood. Please monitor for signs of infection to include swelling, foul drainage or odor from the wound, facial swelling, fever or any new or worsening symptoms. To help limit scarring use sunscreen and wear a hat to limit exposure to the wound from the sun.
== END 2019-03-16 11:36 | disposition home or self-care (01) ==
LOC: ER 10:14
DX: S01.81XD Laceration without foreign body of other part of head, subsequent encounter (principal); X58.XXXD Exposure to other specified factors, subsequent encounter; F17.200 Nicotine dependence, unspecified, uncomplicated; I10 Essential (primary) hypertension